=== PATIENT | female | born 1940 | race Caucasian/White ===

== ENCOUNTER → 2018-01-26 | Outpatient (CLI) | payer MEDICARE | LOC: WOUNDCARE 09:48 | PROVIDERS: ATTEND Surgery | DX: L89.153 Pressure ulcer of sacral region, stage 3 (principal); R54 Age-related physical debility; S72.002D Fracture of unspecified part of neck of left femur, subsequent encounter for closed fracture with routine healing | CPT/HCPCS: 99203 ==

== ENCOUNTER → 2018-01-31 | Outpatient (CLI) | payer MEDICARE | LOC: WOUNDCARE 12:56 | PROVIDERS: ATTEND Surgery | DX: L89.154 Pressure ulcer of sacral region, stage 4 (principal); R54 Age-related physical debility; S72.002D Fracture of unspecified part of neck of left femur, subsequent encounter for closed fracture with routine healing | CPT/HCPCS: 11042 ==

== ENCOUNTER → 2018-02-07 | Outpatient (CLI) | payer MEDICARE | LOC: WOUNDCARE 12:59 | PROVIDERS: ATTEND Surgery | DX: L89.154 Pressure ulcer of sacral region, stage 4 (principal); R54 Age-related physical debility; S72.002D Fracture of unspecified part of neck of left femur, subsequent encounter for closed fracture with routine healing | CPT/HCPCS: 11042 ==

== ENCOUNTER → 2018-02-14 | Outpatient (CLI) | payer MEDICARE | LOC: WOUNDCARE 13:06 | PROVIDERS: ATTEND Surgery | DX: L89.154 Pressure ulcer of sacral region, stage 4 (principal); R54 Age-related physical debility; S72.002D Fracture of unspecified part of neck of left femur, subsequent encounter for closed fracture with routine healing | CPT/HCPCS: 11042 ==

== ENCOUNTER → 2018-02-21 | Outpatient (CLI) | payer MEDICARE | LOC: WOUNDCARE 13:16 | PROVIDERS: ATTEND Nurse Practitioner | DX: L89.154 Pressure ulcer of sacral region, stage 4 (principal); R54 Age-related physical debility; S72.002A Fracture of unspecified part of neck of left femur, initial encounter for closed fracture | CPT/HCPCS: 11042; 87070; 87075; 87077; 87186; 87205; 97605 ==

== ENCOUNTER → 2018-02-28 | Outpatient (CLI) | payer MEDICARE | LOC: WOUNDCARE 13:17 | PROVIDERS: ATTEND Nurse Practitioner | DX: L89.154 Pressure ulcer of sacral region, stage 4 (principal); R54 Age-related physical debility; S72.002D Fracture of unspecified part of neck of left femur, subsequent encounter for closed fracture with routine healing | CPT/HCPCS: 11042 ==

== ENCOUNTER → 2018-03-07 | Outpatient (CLI) | payer MEDICARE | LOC: WOUNDCARE 13:19 | PROVIDERS: ATTEND Nurse Practitioner | DX: L89.154 Pressure ulcer of sacral region, stage 4 (principal); R54 Age-related physical debility; S72.002D Fracture of unspecified part of neck of left femur, subsequent encounter for closed fracture with routine healing | CPT/HCPCS: 11042; 97605 ==

== ENCOUNTER → 2018-03-14 | Outpatient (CLI) | payer MEDICARE | LOC: WOUNDCARE 13:08 | PROVIDERS: ATTEND Nurse Practitioner | DX: L89.154 Pressure ulcer of sacral region, stage 4 (principal); R54 Age-related physical debility; S72.002A Fracture of unspecified part of neck of left femur, initial encounter for closed fracture | CPT/HCPCS: 97605 ==

== ENCOUNTER → 2018-03-21 | Outpatient (CLI) | payer MEDICARE | LOC: WOUNDCARE 13:18 | PROVIDERS: ATTEND Nurse Practitioner | DX: L89.154 Pressure ulcer of sacral region, stage 4 (principal); R54 Age-related physical debility; S72.002D Fracture of unspecified part of neck of left femur, subsequent encounter for closed fracture with routine healing | CPT/HCPCS: 99212 ==

== ENCOUNTER → 2018-03-28 | Outpatient (CLI) | payer MEDICARE | LOC: WOUNDCARE 13:19 | PROVIDERS: ATTEND Nurse Practitioner | DX: L89.154 Pressure ulcer of sacral region, stage 4 (principal); R51 Headache; S72.002D Fracture of unspecified part of neck of left femur, subsequent encounter for closed fracture with routine healing | CPT/HCPCS: 99213 ==

== ENCOUNTER → 2018-04-18 | Outpatient (CLI) | payer MEDICARE | LOC: WOUNDCARE 13:07 | PROVIDERS: ATTEND Surgery | DX: L89.154 Pressure ulcer of sacral region, stage 4 (principal); R54 Age-related physical debility; S72.002D Fracture of unspecified part of neck of left femur, subsequent encounter for closed fracture with routine healing | CPT/HCPCS: 11042; 87070; 87075; 87205 ==

== ENCOUNTER → 2018-04-25 | Outpatient (CLI) | payer MEDICARE | LOC: WOUNDCARE 13:16 | PROVIDERS: ATTEND Surgery | DX: L89.154 Pressure ulcer of sacral region, stage 4 (principal); R54 Age-related physical debility; S72.002D Fracture of unspecified part of neck of left femur, subsequent encounter for closed fracture with routine healing | CPT/HCPCS: 11042; 87070; 87075; 87077; 87205 ==

== ENCOUNTER → 2018-05-02 | Outpatient (CLI) | payer MEDICARE ==
[2018-05-02 15:00] LABS: BASOPHILS % (AUTO) 1 % (0-10); EOSINOPHILS # (AUTO) 0.1 10^3/uL (0.0-0.3); EOSINOPHILS % (AUTO) 2 % (0-10); HEMATOCRIT 39 % (35-52); HEMOGLOBIN 12.4 G/DL (11.5-16.0); LYMPHOCYTES # (AUTO) 2.5 X 10^3 (1.0-4.0); LYMPHOCYTES % (AUTO) 43 % (12-44); MEAN CORPUSCULAR HEMOGLOBIN 27 PG (25-34); MEAN CORPUSCULAR HGB CONC 32 G/DL (32-36); MEAN CORPUSCULAR VOLUME 86 FL (80-99); MEAN PLATELET VOLUME 12.3 FL (7.4-10.4); MONOCYTES # (AUTO) 0.5 X 10^3 (0.0-1.0); MONOCYTES % (AUTO) 9 % (0-12); NEUTROPHILS # (AUTO) 2.6 X 10^3 (1.8-7.8); NEUTROPHILS % (AUTO) 46 % (42-75); PLATELET COUNT 166 10^3/uL (130-400); RED BLOOD COUNT 4.57 10^6/uL (4.35-5.85); RED CELL DISTRIBUTION WIDTH 15.3 % (10.0-14.5); WHITE BLOOD COUNT 5.7 10^3/uL (4.3-11.0)
[2018-05-02 15:17] LABS: ALANINE AMINOTRANSFERASE 19 U/L (0-55); ALBUMIN 3.9 GM/DL (3.2-4.5); ALKALINE PHOSPHATASE 81 U/L (40-136); BILIRUBIN,TOTAL 0.5 MG/DL (0.1-1.0); BUN/CREATININE RATIO 24; CALCIUM 9.8 MG/DL (8.5-10.1); CARBON DIOXIDE 26 MMOL/L (21-32); CHLORIDE 102 MMOL/L (98-107); CREATININE SERUM 0.71 MG/DL (0.60-1.30); GFR ESTIMATED > 60; GLUCOSE 88 MG/DL (70-105); SODIUM 137 MMOL/L (135-145); TOTAL PROTEIN 7.4 GM/DL (6.4-8.2)
== END ==
LOC: LAB 14:37
PROVIDERS: ATTEND Surgery
DX: L89.154 Pressure ulcer of sacral region, stage 4 (principal)
CPT/HCPCS: 36415; 80053; 84134; 85025

== ENCOUNTER → 2018-05-02 | Outpatient (CLI) | payer MEDICARE | LOC: WOUNDCARE 13:18 | PROVIDERS: ATTEND Surgery | DX: L89.154 Pressure ulcer of sacral region, stage 4 (principal); R54 Age-related physical debility; S72.002D Fracture of unspecified part of neck of left femur, subsequent encounter for closed fracture with routine healing | CPT/HCPCS: 11042 ==

== ENCOUNTER 2018-05-06 09:47 | Inpatient (IN) | payer MEDICARE ==
[2018-05-06] VITALS (16 sets, daily range): BP systolic 65–139; BP diastolic 38–65
[~2018-05-06] VITALS: Ht 152.4 cm; Wt 56.5 kg
--- OUTSIDE RECORDS SUMMARY | 2018-05-06 09:53 | XMS REPORT ---
Author Author CHRIS ZAPIEN Organization [facility] Address [address] [place] [address] Care Team Providers Care Second Rigger Name Role Phone CHRIS ZAPIEN Unavailable PROBLEMS Type Condition ICD9-CM Code [id number] Code Onset Dates Condition Status SNOMED Code Problem Dementia without behavioral disturbance, unspecified dementia type F03.90 Active [id number] ALLERGIES No Information ENCOUNTERS Encounter Location Date Diagnosis Via [facility] [employer] [address] [place], [place] [id number] Dec, History of fracture of left hip Z87.81 ; Pressure injury of right upper back, stage 1 L89.111 ; Pressure injury of sacral region, stage 1 L89.151 and Dementia without behavioral disturbance, unspecified dementia type F03.90 Via [employer] [address] [place], [place] [id number] Dec, History of fracture of left hip Z87.81 and Dementia without behavioral disturbance, unspecified dementia type F03.90 [facility] [address] [facility] [id number] [place] [address] Dec, IMMUNIZATIONS No Known Immunizations SOCIAL HISTORY Never Assessed REASON FOR VISIT Admission to V PLAN OF CARE VITAL SIGNS MEDICATIONS Unknown Medications RESULTS No Results PROCEDURES No Known procedures INSTRUCTIONS MEDICATIONS ADMINISTERED No Known Medications
--- OUTSIDE RECORDS SUMMARY | 2018-05-06 09:53 | XMS REPORT ---
Author Author CHRIS ZAPIEN Organization [facility] [place] Address [address] [place] [address] Care Team Providers Care Quality Control Name Role Phone CHRIS ZAPIEN Unavailable PROBLEMS Type Condition ICD9-CM Code [id number] Code Onset Dates Condition Status SNOMED Code Problem Dementia without behavioral disturbance, unspecified dementia type F03.90 Active [id number] ALLERGIES No Information ENCOUNTERS Encounter Location Date Diagnosis Via [facility] [employer] [address] [place], [place] [id number] Dec, History of fracture of left hip Z87.81 ; Pressure injury of right upper back, stage 1 L89.111 ; Pressure injury of sacral region, stage 1 L89.151 and Dementia without behavioral disturbance, unspecified dementia type F03.90 Via [employer] [address] [place], [place] [id number] Dec, History of fracture of left hip Z87.81 and Dementia without behavioral disturbance, unspecified dementia type F03.90 [facility] [place] [address] [facility] [id number] [place] [address] Dec, IMMUNIZATIONS No Known Immunizations SOCIAL HISTORY Never Assessed REASON FOR VISIT New Admission PLAN OF CARE Activity Details Follow Up prn Reason: VITAL SIGNS MEDICATIONS Unknown Medications RESULTS No Results PROCEDURES No Known procedures INSTRUCTIONS MEDICATIONS ADMINISTERED No Known Medications
--- OUTSIDE RECORDS SUMMARY | 2018-05-06 09:53 | XMS REPORT ---
Author Author CHRIS ZAPIEN Organization [facility] Address [address] [place] [address] Care Team Providers Care Special Services Supervisor Name Role Phone CHRIS ZAPIEN Unavailable PROBLEMS Type Condition ICD9-CM Code XLF67-RY Code Onset Dates Condition Status SNOMED Code Problem Dementia without behavioral disturbance, unspecified dementia type F03.90 Active [id number] ALLERGIES No Information ENCOUNTERS Encounter Location Date Diagnosis Via [facility] [employer] [address] [place], [place] [id number] Dec, History of fracture of left hip Z87.81 ; Pressure injury of right upper back, stage 1 L89.111 ; Pressure injury of sacral region, stage 1 L89.151 and Dementia without behavioral disturbance, unspecified dementia type F03.90 Via [employer] [address] [place], [place] [id number] Dec, History of fracture of left hip Z87.81 and Dementia without behavioral disturbance, unspecified dementia type F03.90 [facility] [address] [facility] [id number] [place] [address] Dec, IMMUNIZATIONS No Known Immunizations SOCIAL HISTORY Never Assessed REASON FOR VISIT [facility] Visit PLAN OF CARE Activity Details Follow Up prn Reason: VITAL SIGNS MEDICATIONS Unknown Medications RESULTS No Results PROCEDURES No Known procedures INSTRUCTIONS MEDICATIONS ADMINISTERED No Known Medications
[2018-05-06 10:16] LABS: BASOPHILS % (AUTO) 0 % (0-10); EOSINOPHILS % (AUTO) 0 % (0-10); HEMATOCRIT 48 % (35-52); HEMOGLOBIN 14.9 G/DL (11.5-16.0); LYMPHOCYTES # (AUTO) 1.4 X 10^3 (1.0-4.0); LYMPHOCYTES % (AUTO) 8 % (12-44); MEAN CORPUSCULAR HEMOGLOBIN 27 PG (25-34); MEAN CORPUSCULAR HGB CONC 31 G/DL (32-36); MEAN CORPUSCULAR VOLUME 88 FL (80-99); MEAN PLATELET VOLUME 12.9 FL (7.4-10.4); MONOCYTES # (AUTO) 1.3 X 10^3 (0.0-1.0); MONOCYTES % (AUTO) 8 % (0-12); NEUTROPHILS # (AUTO) 13.8 X 10^3 (1.8-7.8); NEUTROPHILS % (AUTO) 84 % (42-75); PLATELET COUNT 244 10^3/uL (130-400); RED CELL DISTRIBUTION WIDTH 15.8 % (10.0-14.5); WHITE BLOOD COUNT 16.5 10^3/uL (4.3-11.0)
[2018-05-06 10:38] LABS: ALANINE AMINOTRANSFERASE 15 U/L (0-55); ALBUMIN 4.6 GM/DL (3.2-4.5); ALKALINE PHOSPHATASE 90 U/L (40-136); BILIRUBIN,TOTAL 1.2 MG/DL (0.1-1.0); BUN/CREATININE RATIO 30; CALCIUM 10.4 MG/DL (8.5-10.1); CARBON DIOXIDE 45 MMOL/L (21-32); CHLORIDE 79 MMOL/L (98-107); CREATININE SERUM 1.65 MG/DL (0.60-1.30); GFR ESTIMATED 30; GLUCOSE 181 MG/DL (70-105); SODIUM 145 MMOL/L (135-145); TOTAL PROTEIN 8.7 GM/DL (6.4-8.2)
[2018-05-06 10:49] LABS: POTASSIUM 2.5 MMOL/L (3.6-5.0)
[2018-05-06] MEDS: NS IV 1000 ML 1,000 ML IV SCH ×5 (10:50→22:34)
--- NOTE | 2018-05-06 10:57 | ED Abdominal Pain ---
General Chief Complaint: Abdominal/GI Problems Stated Complaint: VOMITING Nursing Triage Note: Pt to rm 10 in wheelchair. Pt's daughter reports pt c/o vomiting and abdominal pain that began Wednesday. Pt was seen at Dr. Oswald office yesterday and was given two L IV NS in office. Daughter also reports pt has wound to tailbone that pt is seeing Dr. Staley for and reports pt has bacterial infection. Daughter reports pt took one dose of linezolid 600mg on Wednesday night and has not taken any since. Pt c/o back pain and dizziness. Daughter also reports pt has gallstones. Sepsis Screen: No Definite Risk Source of Information: Patient History of Present Illness Date Seen by Provider: May 06, 2018 Time Seen by Provider: 10:52 Initial Comments the patient is a 77-year-old white female who is chronically ill. She has been working with Dr. Staley in the wound care department since the fall. Recently he placed her on linezolid for the treatment of her sacral decubitus. Presumably this was to cover MRSA. She took one dose on Wednesday and then began to vomit. She had a bowel movement on Wednesday or Wednesday and none since. She is really not taken any food since Wednesday and has struggled with fluid intake. The daughter has tried Gatorade and Pedialyte with little success. She got 2 L of fluid yesterday at an outpatient clinic. She arrived here with blood pressure in the low normal range and has dropped her blood pressure since that time. Timing/Duration: 4-5 Days Severity/Quality: Moderate Radiation: Back Allergies and Home Medications Allergies Coded Allergies: No Known Drug Allergies (Unverified , 05/06/18) Patient Home Medication List Home Medication List Reviewed: Yes Review of Systems Review of Systems Constitutional: see HPI Respiratory: No Symptoms Reported Cardiovascular: No Symptoms Reported Gastrointestinal: See HPI, Other (very large umbilical hernia which is approaching the size of a volleyball even when lying flat on her back) Genitourinary: No Symptoms Reported Musculoskeletal: no symptoms reported Skin: other (presacral ulcer being treated in the wound clinic) Psychiatric/Neurological: Depressed Endocrine: No Symptoms Reported Hematologic/Lymphatic: No Symptoms Reported Past Vlghgty-Qeooto-Htggjo Hx Past Med/Social Hx: Reviewed Nursing Past Med/Soc Hx Patient Social History Recent Foreign Travel: No Contact w/Someone Who Travel: No Recent Infectious Disease Expo: No Physical Abuse: No Sexual Abuse: No Physical Exam Vital Signs Vital Signs - First Documented 05/06/18 09:49 Temp 97.6 Pulse 95 Resp 19 B/P (MAP) 102/73 (83) Pulse Ox 89 O2 Delivery Room Air Capillary Refill : Less Than 3 Seconds Height/Weight/BMI Height: 5'0" Weight: 129lbs. oz. 58.786819mp; BMI Method:Stated General Appearance: moderate distress, severe distress, other HEENT: normal ENT inspection Respiratory: chest non-tender, lungs clear, normal breath sounds, no respiratory distress, no accessory muscle use Cardiovascular: normal peripheral pulses, regular rate, rhythm, no edema, no gallop, no JVD, no murmur Gastrointestinal: other (large umbilical hernia which is very evident even lying flat on her back. 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 nml as tested, no motor/sensory deficits, alert, normal mood/affect, oriented x 3 Skin: normal color, warm/dry Lymphatic: no adenopathy Focused Exam Lactate Level 05/06/18 10:50: Lactic Acid Level Laboratory Tests Test 05/06/18 10:50 Progress/Results/Core Measures Results/Orders Lab Results Laboratory Tests Test 05/06/18 10:05 05/06/18 10:50 Range/Units White Blood Count 16.5 H 4.3-11.0 10^3/uL Red Blood Count 5.44 4.35-5.85 10^6/uL Hemoglobin 14.9 # 11.5-16.0 G/DL Hematocrit 48 35-52 % Mean Corpuscular Volume 88 80-99 FL Mean Corpuscular Hemoglobin 27 25-34 PG Mean Corpuscular Hemoglobin Concent 31 L 32-36 G/DL Red Cell Distribution Width 15.8 H 10.0-14.5 % Platelet Count 244 130-400 10^3/uL Mean Platelet Volume 12.9 H 7.4-10.4 FL Neutrophils (%) (Auto) 84 H 42-75 % Lymphocytes (%) (Auto) 8 L 12-44 % Monocytes (%) (Auto) 8 0-12 % Eosinophils (%) (Auto) 0 0-10 % Basophils (%) (Auto) 0 0-10 % Neutrophils # (Auto) 13.8 H 1.8-7.8 X 10^3 Lymphocytes # (Auto) 1.4 1.0-4.0 X 10^3 Monocytes # (Auto) 1.3 H 0.0-1.0 X 10^3 Eosinophils # (Auto) 0.0 0.0-0.3 10^3/uL Basophils # (Auto) 0.0 0.0-0.1 10^3/uL Neutrophils % (Manual) 78 % Lymphocytes % (Manual) 12 % Monocytes % (Manual) 4 % Eosinophils % (Manual) 0 % Basophils % (Manual) 0 % Band Neutrophils 6 % Toxic Granulation 1+ Blood Morphology Comment NORMAL Sodium Level 145 135-145 MMOL/L Potassium Level 2.5 *L 3.6-5.0 MMOL/L Chloride Level 79 L 98-107 MMOL/L Carbon Dioxide Level 45 H 21-32 MMOL/L Anion Gap 21 H 5-14 MMOL/L Blood Urea Nitrogen 49 H 7-18 MG/DL Creatinine 1.65 H 0.60-1.30 MG/DL Estimat Glomerular Filtration Rate 30 BUN/Creatinine Ratio 30 Glucose Level 181 H 70-105 MG/DL Calcium Level 10.4 H 8.5-10.1 MG/DL Corrected Calcium 8.5-10.1 MG/DL Total Bilirubin 1.2 H 0.1-1.0 MG/DL Aspartate Amino Transf (AST/SGOT) 31 5-34 U/L Alanine Aminotransferase (ALT/SGPT) 15 0-55 U/L Alkaline Phosphatase 90 40-136 U/L Total Protein 8.7 H 6.4-8.2 GM/DL Albumin 4.6 H 3.2-4.5 GM/DL My Orders Orders - ALICIA PASTOR MD Cbc With Automated Diff (05/06/18 09:57) Comprehensive Metabolic Panel (05/06/18 09:57) Ua Culture If Indicated (05/06/18 09:57) Manual Differential (05/06/18 10:05) Blood Culture (05/06/18 10:32) Lactic Acid Analyzer (05/06/18 10:32) Ns Iv 1000 Ml (Sodium Chloride 0.9%) (05/06/18 10:45) Ondansetron Injection (Zofran Injectio (05/06/18 11:00) Potassium Cl 10meq/50ml Ivpb (Kcl 10 Meq (05/06/18 11:00) Ct Abdomen/Pelvis Wo (05/06/18 11:08) Medications Given in ED Current Medications Medications Dose Ordered Sig/Bassam Route Start Time Stop Time Status Last Admin Dose Admin Ondansetron HCl 8 mg ONCE ONCE IVP 05/06/18 11:00 05/06/18 11:01 DC 05/06/18 11:10 8 MG Vital Signs/I&O 05/06/18 09:49 Temp 97.6 Pulse 95 Resp 19 B/P (MAP) 102/73 (83) Pulse Ox 89 O2 Delivery Room Air Blood Pressure Mean: 83 Departure Communication (Admissions) Dr. Romo called me from radiology. I then went down to review the CT scan with him. This shows that the bulk of the stomach and all of the left colon or in the hernia sac. The stomach is extremely distended and full of fluid. This clearly explains the overflow vomiting of the bilious liquid that the patient has exhibited. She had already qualified for admission and this will be done. A surgical consult will be required. Impression Primary Impression: large umbilical hernia. Disposition: ADMITTED INPATIENT Condition: Stable/Unchanged Admissions Decision to Admit Reason: Admit from ER (General) Decision to Admit/Date: May 06, 2018 Time/Decision to Admit Time: 12:08 Departure-Patient Inst. Referrals: [facility] (PCP) Primary Care Physician FERNANDO OSWALD (Family) Primary Care Physician ALICIA PASTOR MD May 06, 2018 10:57
[2018-05-06 10:58] LABS: BAND NEUTROPHILS 6 %; LYMPHOCYTES % (MANUAL) 12 %; MONOCYTES % (MANUAL) 4 %; NEUTROPHILS % (MANUAL) 78 %
[2018-05-06 10:59] LABS: BASOPHILS % (MANUAL) 0 %; EOSINOPHILS % (MANUAL) 0 %; RBC MORPH NORMAL; TOXIC GRANULATION/VACUOLAZATIO 1+
[2018-05-06] MEDS ORDERED: ONDANSETRON 4 MG/2 ML (SDV) Z0FRAN IVP ONE (11:00)
[2018-05-06] MEDS: POTASSIUM CL 10MEQ/50ML IVPB 50 ML IV SCH ×3 (11:53→14:32)
--- NOTE | 2018-05-06 12:29 | Diagnostic Imaging Report ---
PROCEDURE: CT abdomen and pelvis without contrast. TECHNIQUE: Multiple contiguous axial images were obtained through the abdomen and pelvis without the use of intravenous contrast. INDICATION: Vomiting and abdominal pain. No prior studies are available for comparison. The lung bases are clear. The distal esophagus is distended and fluid-filled. There is marked fluid-filled distention to the stomach. A large portion of the stomach extends through an abdominal wall defect in the midline. The herniated portion of stomach is also fluid filled and distended. A large amount of bowel loops are also present in the hernia sac which appear to be primarily colonic bowel loops, likely in the left colon. There appears to be a gastric outlet obstruction. Level of the obstruction appears to be at the pylorus which appears to be significantly narrowed at the abdominal wall anteriorly at the point of reentry into the abdomen. Pylorus is herniated with the remainder of the distal stomach. The colon does not appear to be obstructed. No wall thickening or pneumatosis is seen. Intra-abdominal small bowel loops are normal caliber. There is diverticulosis of the distal colon. Uterus contains a large calcification consistent with fibroid. There is no ascites. Liver is unremarkable. Gallbladder contains small stones. The pancreas and spleen are unremarkable. Adrenal glands and kidneys are unremarkable. Aorta is calcified but nonaneurysmal. IMPRESSION: Midline ventral hernia containing the distal stomach and gastric outlet as well as multiple colonic bowel loops. The stomach and distal esophagus are significantly distended with fluid. Features are consistent with gastric outlet obstruction. No definite small or large bowel obstruction is seen. Patient would likely benefit from a nasogastric tube. Cholelithiasis. Uncomplicated diverticulosis. Results were discussed with Dr. Rebolledo of the emergency department prior to this dictation. Dictated by: Dictated on workstation # [id number]
[2018-05-06] MEDS ORDERED: NS IV 1000 ML 1,000 ML IV SCH (12:30)
--- NOTE | 2018-05-06 13:28 | NUR ---
Dr. Girard in with pt at this time.
--- NOTE | 2018-05-06 13:35 | NUR ---
Total of 3,475 cc of stomach contents suctioned at this time.
[2018-05-06] MEDS ORDERED: POTA10TA36 PO (13:46)
[2018-05-06] MEDS ORDERED: CAPT1TAB8 PO (13:46)
[2018-05-06] MEDS ORDERED: VERA120T84 PO (13:46)
[2018-05-06] MEDS ORDERED: LOVA10TA PO (13:46)
[2018-05-06] MEDS ORDERED: LINE600T33 PO (13:46)
[2018-05-06] MEDS ORDERED: ONDA4TAB11 PO (13:46)
[2018-05-06] MEDS ORDERED: SODI473S7 TOP (13:46)
--- NOTE | 2018-05-06 13:55 | NUR ---
PT ADMITTED TO ICU8 VIA STRETCHER W/ STAFF. PT ASSISTED INTO BED AND PLACED ON MONITORS. PT ORIENTED TO SURROUNDINGS. NO QUESTIONS/CONCERNS VOICED.
--- NOTE | 2018-05-06 14:03 | Consultation ---
History of Present Illness History of Present Illness Patient Consulted On(ethan/time) 05/06/18 13:57 Date Seen by Provider: May 06, 2018 Time Seen by Provider: 12:55 Reason for Visit: abdominal pain and vomiting History of Present Illness long-standing, large, primary ventral hernia containing stomach, small bowel and colon. Patient being managed at our wound care facility regarding a sacral decubitus ulcer, that she suffered following a fracture of her left femur about 8 months ago.evaluation in the emergency room including a CT scan shows chronic renal insufficiency with a dilated stomach, possibly due to acute gastric dilatation. In addition, her white cell count and lactic acid are elevated indicating early sepsis. Allergies and Home Medications Allergies Coded Allergies: No Known Drug Allergies (Unverified , 05/06/18) Home Medications Captopril/Hydrochlorothiazide 1 Each Tablet, 1 TAB PO DAILY, (Reported) Linezolid 600 Mg Tablet, 600 MG PO BID, (Reported) 10 DAY SUPPLY FILLED 05-02-18 Lovastatin 10 Mg Tablet, 10 MG PO HS, (Reported) Ondansetron 4 Mg Tab.rapdis, 4 MG PO TID PRN for NAUSEA/VOMITING-1ST LINE, ( Reported) Potassium Chloride 10 Meq Tab.er.prt, 10 MEQ PO BID, (Reported) Sodium Hypochlorite 473 Ml Solution, TOP UD, (Reported) Verapamil HCl 120 Mg Tablet.er, 120 MG PO DAILY, (Reported) Patient Home Medication List Home Medication List Reviewed: Yes Past Jekhrzy-Zftmfl-Egdzhs Hx Past Med/Social Hx: Reviewed Nursing Past Med/Soc Hx Patient Social History Recent Foreign Travel: No Contact w/Someone Who Travel: No Recent Infectious Disease Expo: No Physical Abuse: No Sexual Abuse: No Past Medical History Surgeries: Yes Orthopedic Gastrointestinal: Yes Abdominal Hernia, Chronic Constipation Musculoskeletal: Yes Chronic Back Pain Endocrine: Yes Diabetes, Insulin dep Review of Systems-General Constitutional: malaise, weakness EENTM: no symptoms reported Respiratory: no symptoms reported Cardiovascular: no symptoms reported Gastrointestinal: see HPI Genitourinary: no symptoms reported Musculoskeletal: see HPI Skin: see HPI Psychiatric/Neurological: Anxiety Physical Exam-General Problems Physical Exam Vital Signs Vital Signs - First Documented 05/06/18 09:49 Temp 97.6 Pulse 95 Resp 19 B/P (MAP) 102/73 (83) Pulse Ox 89 O2 Delivery Room Air Capillary Refill : Less Than 3 Seconds General Appearance: mild distress Neck: supple Respiratory: lungs clear Cardiovascular: regular rate, rhythm Gastrointestinal: soft, hernia Rectal: deferred Back: other Extremities: normal inspection Neurologic/Psychiatric: alert, oriented x 3 Skin: warm/dry Comments large and nontender, long-standing ventral hernia with loss of domain along the central aspect of her abdomen. Peristalsis easily seen through the skin. No evidence of incarceration. Sacral decubitus ulcer with evidence of recent debridement by the wound care physician. No abscess identified. Assessment/Plan Assessment/Plan Admission Diagnosis/Plan lady with acute gastric dilatation. Long-standing ventral hernia containing stomach small bowel and colon. Sacral decubitus ulcer. Leukocytosis and elevated lactic acid. Reasonable to administer IV antibiotics. Nasogastric tube has been placed to decompress stomach. Fluid replacement as needed. Monitor closely. Admission Status: Inpatient Order (span 2 midnights) Reason for Inpatient Admission: hospital course and management required to last longer than 2 days BRIEN RIOS MD May 06, 2018 14:03
[2018-05-06] MEDS: NOREPINEPHRINE 4 MG in NS (IVPB) 250 ML IV SCH (14:11)
[2018-05-06] MEDS ORDERED: CATHETER FLUSH 10 ML SYR IV PRN (14:15)
[2018-05-06] MEDS ORDERED: NS IV ONE (14:15)
[2018-05-06] MEDS ORDERED: OMG1KC PO (14:24)
[2018-05-06] MEDS ORDERED: GLUC100016 PO (14:24)
--- NOTE | 2018-05-06 14:25 | NUR ---
SPOKE WITH THE PATIENT AND FAMILY ABOUT MEDICATIONS. THEY HAD HER PRESCRIPTION BOTTLES WITH THEM AND I CALLED [facility] FOR A LIST OF RECENTLY FILLED MEDICATIONS. [facility] FILLED: 05-05-18 ZOFRAN ODT 4MG TID PRN 05-02-18 LINEZOLID 600MG BID X 10 DAYS (HAS NOT TAKEN SINCE WEDNESDAY DUE TO NAUSEA/VOMITING) 04-25-18 CAPTOPRIL HCTZ 50-25 DAILY 04-18-18 DAKIN'S SOLUTION UD (STATES SHE IS NO LONGER USING) 04-10-18 LOVASTATIN 10MG WITH SUPPER #90 (HAS NOT TAKEN ALL WEEK DUE TO NAUSEA) 04-10-18 POTASSIUM 10MEQ BID 04-10-18 VERAPAMIL ER 120MG TAB DAILY (TAKES 1 HOUR AFTER CAPTOPRIL) SHE TAKES FISH OIL DAILY AND GLUCOSAMINE DAILY NEEDED FOR JOINT PAIN OTC
[2018-05-06] MEDS: PANTOPRAZOLE 40 MG (PROTONIX) VIAL IV SCH (14:26)
[2018-05-06] MEDS: cefTRIAXone 1 GM/NS 50 ML IVPB IV SCH ×2 (14:26)
--- NOTE | 2018-05-06 14:33 | NUR ---
PER ER REPORT PT RECEIVED 2L IVF BOLUS WHILE IN ER. 30ML/KG BOLUS NON ADMINISTERED AT THIS TIME.
[2018-05-06] MEDS ORDERED: FLU QUADRIvalent (5+ YOA) 2018-2019 (AFLURIA) 0.5 ML IM ONE (15:00)
[2018-05-06 15:51] LABS: BILIRUBIN,URINE NEGATIVE (NEGATIVE); CLARITY,URINE VERY CLOUDY; COLOR,URINE YELLOW; GLUCOSE, URINE (UA) NEGATIVE (NEGATIVE); KETONES,URINE 1+ (NEGATIVE); LEUKOCYTE ESTERASE ,URINE 1+ (NEGATIVE); NITRITE,URINE NEGATIVE (NEGATIVE); PH,URINE 6 (5-9); PROTEIN,URINE 3+ (NEGATIVE); UROBILINOGEN,URINE NORMAL (NORMAL)
[2018-05-06 16:01] LABS: HYALINE CASTS, URINE >50 /LPF
--- NOTE | 2018-05-06 23:50 | NUR ---
2325 Patient BP 88/49, patient cuff adjusted with repeat BP at 2329 of 84/44. 2330 reading 89/38. This com writer spoke in depth with the patient at this time about possibility needing IV medication to help raise blood pressure and that patient would need central line placement by the surgeon. This com writer explained all about the medication and the possible side effects and benefits. Patient denies needing this medication, patient states "I don't want that." Also stating "fear of high blood pressure." This com writer offered to call patient daughter Katharina to explain the changes in patient blood pressure and patient did not want this com writer to call. Patient continues repeating that she does not want this medication multiple time during this conversation. This com writer explained the risks with low blood pressure and not having profusion to her vital organs including her brain. Patient verbalized understanding and continues to decline. Patient rolled on to her left side at this time and had a blood pressure reading of 126/60. Subsequent blood pressures have read 103/59 and 107/56. Will continue to monitor and follow blood pressure closely. Will call daughter with an update as she did express wanting to know about changes through the night in patient condition.
[2018-05-07] VITALS (24 sets, daily range): BP systolic 102–146; BP diastolic 46–74
[2018-05-07] MEDS: inSUlin ASPART (NovoLOG) 1 UNIT/0.01 ML (CHARGE PER UNIT) SC SCH ×4 (00:10→17:08)
--- NOTE | 2018-05-07 00:25 | NUR ---
Attempted to call daughter Radha at this time. No answer. Left voicemail for her to return my call for an update.
[2018-05-07] MEDS: NOREPINEPHRINE 4 MG in NS (IVPB) 250 ML IV SCH ×2 (03:50→16:05)
[2018-05-07 03:58] LABS: BASOPHILS % (AUTO) 0 % (0-10); EOSINOPHILS % (AUTO) 0 % (0-10); HEMATOCRIT 33 % (35-52); LYMPHOCYTES # (AUTO) 1.7 X 10^3 (1.0-4.0); LYMPHOCYTES % (AUTO) 17 % (12-44); MEAN CORPUSCULAR HEMOGLOBIN 28 PG (25-34); MEAN CORPUSCULAR HGB CONC 31 G/DL (32-36); MEAN CORPUSCULAR VOLUME 91 FL (80-99); MEAN PLATELET VOLUME 12.7 FL (7.4-10.4); MONOCYTES # (AUTO) 1.3 X 10^3 (0.0-1.0); MONOCYTES % (AUTO) 13 % (0-12); NEUTROPHILS % (AUTO) 70 % (42-75); PLATELET COUNT 134 10^3/uL (130-400); RED CELL DISTRIBUTION WIDTH 15.8 % (10.0-14.5)
[2018-05-07 04:18] LABS: ALBUMIN 2.9 GM/DL (3.2-4.5); CALCIUM 7.9 MG/DL (8.5-10.1); CREATININE SERUM 0.96 MG/DL (0.60-1.30); MAGNESIUM 2.1 MG/DL (1.8-2.4); PHOSPHORUS 2.6 MG/DL (2.3-4.7); TOTAL PROTEIN 5.3 GM/DL (6.4-8.2)
[2018-05-07 04:22] LABS: POTASSIUM 2.3 MMOL/L (3.6-5.0)
[2018-05-07] MEDS: KCL 20 MEQ TAB (K-DUR) PO SCH (04:27)
[2018-05-07] MEDS: MAGNESIUM 1 GM/100 ML IVPB 100 ML IV SCH (04:27)
[2018-05-07] MEDS: POTASSIUM CL 10MEQ/50ML IVPB 50 ML IV SCH ×11 (04:28→17:12)
[2018-05-07] MEDS: NS IV 1000 ML 1,000 ML IV SCH ×2 (04:38→10:52)
[2018-05-07] MEDS: PANTOPRAZOLE 40 MG (PROTONIX) VIAL IV SCH (08:35)
[2018-05-07] MEDS: cefTRIAXone 1 GM/NS 50 ML IVPB IV SCH ×2 (08:35)
--- NOTE | 2018-05-07 08:57 | Diagnostic Imaging Report ---
INDICATION: Shortness of breath. COMPARISON: None. FINDINGS: Single view of the chest demonstrates cardiac enlargement with slight central vascular congestion. Trace effusion is seen in the left base. There is no pneumothorax. There is an NG tube within the stomach. The side-port is just below the GE junction. IMPRESSION: 1. Cardiac enlargement with slight central vascular congestion. 2. Small effusion left base. Dictated by: Dictated on workstation # [id number]
--- NOTE | 2018-05-07 10:50 | History & Physicial (CHS) ---
HPI History of Present Illness: 77 yo F with known large ventral hernia that had 1 day of vomiting. Initially thought to be related to starting new antibiotic but patient continued to vomit after stopping antibiotic. She was unable to keep any fluid or food down. Decreased UOP and PO intake. Denies any fever or chills. Source: patient, RN/MD, old records Exam Limitations: no limitations Date seen by provider: May 07, 2018 Time Seen by Provider: 10:15 Attending Physician Rex Tracey MD [facility] [place] Consult Date of Admission May 06, 2018 at 13:11 Home Medications Home Medications Reviewed patient Home Medication Reconciliation performed by pharmacy medication reconciliations dental lab technician and/or nursing. Patients Allergies have been reviewed. Allergies Coded Allergies: chocolate flavor (Verified Allergy, Mild, NAUSEA, 05/06/18) [id number] Hx Patient Social History Alcohol Use: Denies Use Recreational Drug Use: No 2nd Hand Smoke Exposure: No Recent Foreign Travel: No Contact w/other who traveled: No Recent Hopitalizations: No Recent Infectious Disease Expo: No Physical Abuse Screen: No Sexual Abuse: No Past Medical History Ventral Hernia HTN Sacral Decubitus Ulcer Chronic Family Medical History Family History: Hypertension 19 MOTHER Review of Systems ([facility]C) Constitutional: No chills, No fever; weakness EENTM: no symptoms reported Respiratory: no symptoms reported; No cough, No dyspnea on exertion, No short of breath Cardiovascular: no symptoms reported; No chest pain, No edema, No palpitations Gastrointestinal: abdominal pain, loss of appetite, nausea, vomiting Genitourinary: decreased output; No dysuria, No frequency, No hematuria : No Musculoskeletal: no symptoms reported Skin: no symptoms reported Psychiatric/Neurological: No Symptoms Reported Reviewed Test Results Reviewed Test Results Lab Laboratory Tests Test 05/06/18 12:19 05/06/18 15:15 05/06/18 15:40 05/06/18 23:36 Range/Units Lactic Acid Level 3.23 *H 1.48 0.50-2.00 MMOL/L Urine Color YELLOW Urine Clarity VERY CLOUDY H Urine pH 6 5-9 Urine Specific [place] 1.015 L 1.016-1.022 Urine Protein 3+ H NEGATIVE Urine Glucose (UA) NEGATIVE NEGATIVE Urine Ketones 1+ H NEGATIVE Urine Nitrite NEGATIVE NEGATIVE Urine Bilirubin NEGATIVE NEGATIVE Urine Urobilinogen NORMAL NORMAL MG/DL Urine Leukocyte Esterase 1+ H NEGATIVE Urine RBC (Auto) 2+ H NEGATIVE Urine RBC 5-10 H /HPF Urine WBC 2-5 /HPF Urine Crystals NONE /LPF Urine Bacteria NONE /HPF Urine Casts PRESENT /LPF Urine Hyaline Casts >50 H /LPF Urine Granular Casts 2-5 H /LPF Urine Mucus NEGATIVE /LPF Urine Culture Indicated NO Glucometer 97 70-110 MG/DL Test 05/07/18 03:10 Range/Units White Blood Count 10.0 4.3-11.0 10^3/uL Red Blood Count 3.59 L 4.35-5.85 10^6/uL Hemoglobin 10.0 #L 11.5-16.0 G/DL Hematocrit 33 L 35-52 % Mean Corpuscular Volume 91 80-99 FL Mean Corpuscular Hemoglobin 28 25-34 PG Mean Corpuscular Hemoglobin Concent 31 L 32-36 G/DL Red Cell Distribution Width 15.8 H 10.0-14.5 % Platelet Count 134 130-400 10^3/uL Mean Platelet Volume 12.7 H 7.4-10.4 FL Neutrophils (%) (Auto) 70 42-75 % Lymphocytes (%) (Auto) 17 12-44 % Monocytes (%) (Auto) 13 H 0-12 % Eosinophils (%) (Auto) 0 0-10 % Basophils (%) (Auto) 0 0-10 % Neutrophils # (Auto) 7.0 1.8-7.8 X 10^3 Lymphocytes # (Auto) 1.7 1.0-4.0 X 10^3 Monocytes # (Auto) 1.3 H 0.0-1.0 X 10^3 Eosinophils # (Auto) 0.0 0.0-0.3 10^3/uL Basophils # (Auto) 0.0 0.0-0.1 10^3/uL Sodium Level 148 H 135-145 MMOL/L Potassium Level 2.3 *L 3.6-5.0 MMOL/L Chloride Level 99 98-107 MMOL/L Carbon Dioxide Level 37 H 21-32 MMOL/L Anion Gap 12 5-14 MMOL/L Blood Urea Nitrogen 43 H 7-18 MG/DL Creatinine 0.96 0.60-1.30 MG/DL Estimat Glomerular Filtration Rate 57 BUN/Creatinine Ratio 45 Glucose Level 94 70-105 MG/DL Calcium Level 7.9 L 8.5-10.1 MG/DL Corrected Calcium 8.8 8.5-10.1 MG/DL Phosphorus Level 2.6 2.3-4.7 MG/DL Magnesium Level 2.1 1.8-2.4 MG/DL Total Bilirubin 1.0 0.1-1.0 MG/DL Aspartate Amino Transf (AST/SGOT) 21 5-34 U/L Alanine Aminotransferase (ALT/SGPT) 13 0-55 U/L Alkaline Phosphatase 53 40-136 U/L Total Protein 5.3 L 6.4-8.2 GM/DL Albumin 2.9 L 3.2-4.5 GM/DL Radiology Date of Exam: 05/06/18 CT ABDOMEN/PELVIS WO PROCEDURE: CT abdomen and pelvis without contrast. TECHNIQUE: Multiple contiguous axial images were obtained through the abdomen and pelvis without the use of intravenous contrast. INDICATION: Vomiting and abdominal pain. No prior studies are available for comparison. The lung bases are clear. The distal esophagus is distended and fluid-filled. There is marked fluid-filled distention to the stomach. A large portion of the stomach extends through an abdominal wall defect in the midline. The herniated portion of stomach is also fluid filled and distended. A large amount of bowel loops are also present in the hernia sac which appear to be primarily colonic bowel loops, likely in the left colon. There appears to be a gastric outlet obstruction. Level of the obstruction appears to be at the pylorus which appears to be significantly narrowed at the abdominal wall anteriorly at the point of reentry into the abdomen. Pylorus is herniated with the remainder of the distal stomach. The colon does not appear to be obstructed. No wall thickening or pneumatosis is seen. Intra-abdominal small bowel loops are normal caliber. There is diverticulosis of the distal colon. Uterus contains a large calcification consistent with fibroid. There is no ascites. Liver is unremarkable. Gallbladder contains small stones. The pancreas and spleen are unremarkable. Adrenal glands and kidneys are unremarkable. Aorta is calcified but nonaneurysmal. IMPRESSION: Midline ventral hernia containing the distal stomach and gastric outlet as well as multiple colonic bowel loops. The stomach and distal esophagus are significantly distended with fluid. Features are consistent with gastric outlet obstruction. No definite small or large bowel obstruction is seen. Patient would likely benefit from a nasogastric tube. Cholelithiasis. Uncomplicated diverticulosis. Physical Exam-(CHC) Physical Exam Vital Signs VS - Last 72 Hours, by Label 05/06/18 05/06/18 05/06/18 05/06/18 09:49 13:35 13:55 14:03 Temp 97.6 97.6 Pulse 95 99 94 Resp 19 17 B/P (MAP) 102/73 (83) 97/78 (84) Pulse Ox 89 94 O2 Delivery Room Air Room Air Room Air 05/06/18 05/06/18 05/06/18 05/06/18 14:15 14:15 14:30 14:45 Temp 98.1 Pulse 92 93 95 97 Resp 12 21 10 24 B/P (MAP) 139/44 (75) 139/44 (75) 83/41 (55) 95/56 (69) Pulse Ox 96 93 96 95 O2 Delivery Room Air Room Air Room Air Room Air 05/06/18 05/06/18 05/06/18 05/06/18 15:00 15:15 15:22 15:30 Temp 98.8 Pulse 99 97 98 Resp 17 55 32 B/P (MAP) 90/54 (66) 92/48 (63) 105/51 (69) Pulse Ox 97 96 97 O2 Delivery Room Air Room Air Room Air 05/06/18 05/06/18 05/06/18 05/06/18 15:45 16:00 16:03 17:00 Pulse 95 92 96 Resp 10 24 27 B/P (MAP) 65/46 (52) 92/55 (67) 94/56 (69) Pulse Ox 96 93 94 O2 Delivery Room Air Room Air Room Air Room Air 05/06/18 05/06/18 05/06/18 05/06/18 18:00 19:00 19:00 19:45 Temp 98.8 Pulse 93 89 93 Resp 27 20 B/P (MAP) 83/43 (56) 96/65 (75) Pulse Ox 93 93 93 O2 Delivery Room Air Room Air Room Air 05/06/18 05/06/18 05/06/18 05/06/18 20:00 21:00 22:00 23:00 Pulse 79 79 70 76 Resp 22 22 16 15 B/P (MAP) 92/53 (66) 100/53 (69) 116/59 (78) 88/45 (59) Pulse Ox 93 93 94 92 O2 Delivery Room Air Room Air Room Air Room Air 05/06/18 05/06/18 05/06/18 05/06/18 23:30 23:35 23:37 23:43 Temp 98.2 Pulse 77 Resp 18 B/P (MAP) 89/38 (55) Pulse Ox 92 92 O2 Delivery Room Air Room Air Nasal Cannula Nasal Cannula O2 Flow Rate 2.00 2.00 05/07/18 05/07/18 05/07/18 05/07/18 00:00 01:00 01:00 02:00 Pulse 73 70 69 69 Resp 20 22 26 B/P (MAP) 103/59 (74) 106/53 (70) 102/61 (75) Pulse Ox 96 99 98 O2 Delivery Nasal Cannula Nasal Cannula Nasal Cannula O2 Flow Rate 2.00 2.00 2.00 05/07/18 05/07/18 05/07/18 05/07/18 03:00 04:00 04:00 05:00 Temp 97.7 Pulse 56 70 53 Resp 21 15 19 B/P (MAP) 102/48 (66) 115/69 (84) 119/52 (74) Pulse Ox 100 98 98 100 O2 Delivery Nasal Cannula Nasal Cannula Nasal Cannula Nasal Cannula O2 Flow Rate 2.00 2.00 2.00 2.00 05/07/18 05/07/18 05/07/18 05/07/18 06:00 07:00 07:01 07:38 Temp 98.2 Pulse 65 57 56 Resp 12 24 B/P (MAP) 122/56 (78) 116/52 (73) Pulse Ox 100 99 O2 Delivery Nasal Cannula Nasal Cannula O2 Flow Rate 2.00 2.00 05/07/18 08:24 O2 Delivery Nasal Cannula O2 Flow Rate 2.00 Capillary Refill : Less Than 3 Seconds General Appearance: WD/WN, no apparent distress, thin HEENT: PERRL/EOMI Neck: non-tender, full range of motion, supple, normal inspection Respiratory: chest non-tender, lungs clear, normal breath sounds, no respiratory distress, no accessory muscle use Cardiovascular: normal peripheral pulses, regular rate, rhythm, no edema, no murmur Gastrointestinal: non tender, soft, mass (Large Ventral Hernia) Back: no CVA tenderness, no vertebral tenderness Extremities: normal range of motion, non-tender, normal inspection, no pedal edema, no calf tenderness, normal capillary refill Neurologic/Psychiatric: tie carrier II-XII nml as tested, no motor/sensory deficits, alert, normal mood/affect, oriented x 3 Skin: normal color, warm/dry Lymphatic: no adenopathy Assessment/Plan Assessment/Plan Admission Status: Inpatient Order (span 2 midnights) Reason for Inpatient Admission: Requiring ICU care with hypotension, IV antibiotics and surgical consult (1) Sepsis Status: Acute Assessment & Plan: - VS have stabilized this AM, Continue IV antibiotics Qualifiers: Qualified Codes: A41.9 - Sepsis, unspecified organism (2) Ventral hernia with bowel obstruction Status: Acute Assessment & Plan: - Large Ventral Hernia containing Stomach, segments of small bowel and segments of large bowel, Dr Girard consulted and managing, continue NG for decompression and NPO (3) Acute kidney failure Status: Resolved Assessment & Plan: - Likely Prerenal 2/2 dehydration as it has resolved with IVFs (4) Leukocytosis Status: Resolved (5) Hypokalemia Status: Acute Assessment & Plan: - Continue with replacement (6) Debility Status: Acute Assessment & Plan: -PT/OT (7) DVT prophylaxis Status: Acute Assessment & Plan: - Lovenox Clinical Quality Measures DVT/VTE Risk/Contraindication: Risk Factor Score Per Nursin RFS Level Per Nursing on Admit: 3=High REX TRACEY MD May 07, 2018 10:50
[2018-05-07] MEDS: ENOXAPARIN 40 MG/0.4 ML (LOVENOX) SYR SQ SCH (11:36)
[2018-05-07 12:58] LABS: BUN/CREATININE RATIO 40; CALCIUM 8.1 MG/DL (8.5-10.1); CARBON DIOXIDE 34 MMOL/L (21-32); CHLORIDE 104 MMOL/L (98-107); CREATININE SERUM 0.77 MG/DL (0.60-1.30); GFR ESTIMATED > 60; GLUCOSE 83 MG/DL (70-105); POTASSIUM 3.1 MMOL/L (3.6-5.0); SODIUM 148 MMOL/L (135-145)
--- NOTE | 2018-05-07 13:23 | Progress Note (SOAP) ---
Subjective Date Seen by a Provider: May 07, 2018 Time Seen by a Provider: 12:50 Subjective/Events-last exam no specific complaints. White cell count back to normal. Hypokalemia. Minimal output from the nasogastric tube. Lactic acid decreased. Review of Systems General: No Chills, No Night Sweats, No Fatigue, No Malaise HEENT: No Head Aches, No Eye Pain, No Ear Pain, No Dysphasia, No Sinus Congestion, No Post Nasal Drip, No Sore Throat Cardiovascular: No: Chest Pain, Palpitations, Orthopnea, Paroxysmal Noc. Dyspnea, Edema, Lt Headedness Gastrointestinal: No: Nausea, Vomiting, Abdominal Pain, Diarrhea, Constipation , Melena, Hematochezia Genitourinary: No Dysuria, No Frequency, No Incontinence, No Hematuria, No Retention Musculoskeletal: other Neurological: No: Weakness, Numbness, Incoordination, Change in speech, Confusion, Seizures, Other Focused Exam Lactate Level 05/06/18 12:19: Lactic Acid Level 3.23*H 05/06/18 15:15: Lactic Acid Level 1.48 Objective Exam Vital Signs Date Time Temp Pulse Resp B/P (MAP) Pulse Ox O2 Delivery O2 Flow Rate FiO2 05/07/18 11:08 98.3 05/07/18 10:00 63 9 125/61 (82) 99 Nasal Cannula 2.00 05/07/18 09:00 58 25 124/50 (74) 100 Nasal Cannula 2.00 05/07/18 08:24 Nasal Cannula 2.00 05/07/18 08:00 65 26 109/67 (81) 100 Nasal Cannula 2.00 05/07/18 07:38 98.2 05/07/18 07:01 56 05/07/18 07:00 57 24 116/52 (73) 99 Nasal Cannula 2.00 05/07/18 06:00 65 12 122/56 (78) 100 Nasal Cannula 2.00 05/07/18 05:00 53 19 119/52 (74) 100 Nasal Cannula 2.00 05/07/18 04:00 97.7 70 15 115/69 (84) 98 Nasal Cannula 2.00 05/07/18 04:00 98 Nasal Cannula 2.00 05/07/18 03:00 56 21 102/48 (66) 100 Nasal Cannula 2.00 05/07/18 02:00 69 26 102/61 (75) 98 Nasal Cannula 2.00 05/07/18 01:00 69 22 106/53 (70) 99 Nasal Cannula 2.00 05/07/18 01:00 70 05/07/18 00:00 73 20 103/59 (74) 96 Nasal Cannula 2.00 05/06/18 23:43 Nasal Cannula 2.00 05/06/18 23:37 Nasal Cannula 2.00 05/06/18 23:35 92 Room Air 05/06/18 23:30 98.2 77 18 89/38 (55) 92 Room Air 05/06/18 23:00 76 15 88/45 (59) 92 Room Air 05/06/18 22:00 70 16 116/59 (78) 94 Room Air 05/06/18 21:00 79 22 100/53 (69) 93 Room Air 05/06/18 20:00 79 22 92/53 (66) 93 Room Air 05/06/18 19:45 93 Room Air 05/06/18 19:00 93 05/06/18 19:00 98.8 89 20 96/65 (75) 93 Room Air 05/06/18 18:00 93 27 83/43 (56) 93 Room Air 05/06/18 17:00 96 27 94/56 (69) 94 Room Air 05/06/18 16:03 Room Air 05/06/18 16:00 92 24 92/55 (67) 93 Room Air 05/06/18 15:45 95 10 65/46 (52) 96 Room Air 05/06/18 15:30 98 32 105/51 (69) 97 Room Air 05/06/18 15:22 98.8 05/06/18 15:15 97 55 92/48 (63) 96 Room Air 05/06/18 15:00 99 17 90/54 (66) 97 Room Air 05/06/18 14:45 97 24 95/56 (69) 95 Room Air 05/06/18 14:30 95 10 83/41 (55) 96 Room Air 05/06/18 14:15 93 21 139/44 (75) 93 Room Air 05/06/18 14:15 98.1 92 12 139/44 (75) 96 Room Air 05/06/18 14:03 94 05/06/18 13:55 Room Air 05/06/18 13:35 97.6 99 17 97/78 (84) 94 Room Air I & O 05/07/18 07:00 Intake Total 6440 ml Output Total 1005 ml Balance 5435 ml Capillary Refill : Less Than 3 Seconds General Appearance: Anxious Neck: Normal Inspection Respiratory: Lungs Clear Cardiovascular: Regular Rate, Rhythm Gastrointestinal: hernia Neurologic/Psychiatric: Alert, Oriented x3 Skin: Warm/Dry Results Lab Laboratory Tests 05/06/18 15:15: Lactic Acid Level 1.48 05/06/18 15:40: Urine Color YELLOW, Urine Clarity VERY CLOUDYH, Urine pH 6, Urine Specific [place] 1.015L, Urine Protein 3+H, Urine Glucose (UA) NEGATIVE, Urine Ketones 1+ H, Urine Nitrite NEGATIVE, Urine Bilirubin NEGATIVE, Urine Urobilinogen NORMAL, Urine Leukocyte Esterase 1+H, Urine RBC (Auto) 2+H, Urine RBC 5-10H, Urine WBC 2 -5, Urine Crystals NONE, Urine Bacteria NONE, Urine Casts PRESENT, Urine Hyaline Casts >50H, Urine Granular Casts 2-5H, Urine Mucus NEGATIVE, Urine Culture Indicated NO 05/06/18 23:36: Glucometer 97 05/07/18 03:10: White Blood Count 10.0, Red Blood Count 3.59L, Hemoglobin 10.0#L, Hematocrit 33L , Mean Corpuscular Volume 91, Mean Corpuscular Hemoglobin 28, Mean Corpuscular Hemoglobin Concent 31L, Red Cell Distribution Width 15.8H, Platelet Count 134, Mean Platelet Volume 12.7H, Neutrophils (%) (Auto) 70, Lymphocytes (%) (Auto) 17 , Monocytes (%) (Auto) 13H, Eosinophils (%) (Auto) 0, Basophils (%) (Auto) 0, Neutrophils # (Auto) 7.0, Lymphocytes # (Auto) 1.7, Monocytes # (Auto) 1.3H, Eosinophils # (Auto) 0.0, Basophils # (Auto) 0.0, Sodium Level 148H, Potassium Level 2.3*L, Chloride Level 99, Carbon Dioxide Level 37H, Anion Gap 12, Blood Urea Nitrogen 43H, Creatinine 0.96, Estimat Glomerular Filtration Rate 57, BUN/ Creatinine Ratio 45, Glucose Level 94, Calcium Level 7.9L, Corrected Calcium 8.8 , Phosphorus Level 2.6, Magnesium Level 2.1, Total Bilirubin 1.0, Aspartate Amino Transf (AST/SGOT) 21, Alanine Aminotransferase (ALT/SGPT) 13, Alkaline Phosphatase 53, Total Protein 5.3L, Albumin 2.9L 05/07/18 12:30: Sodium Level 148H, Potassium Level 3.1L, Chloride Level 104, Carbon Dioxide Level 34H, Anion Gap 10, Blood Urea Nitrogen 31H, Creatinine 0.77, Estimat Glomerular Filtration Rate > 60, BUN/Creatinine Ratio 40, Glucose Level 83, Calcium Level 8.1L Assessment/Plan Assessment/Plan Assess & Plan/Chief Complaint lady with acute gastric dilatation. Long-standing ventral hernia containing stomach small bowel and colon. Sacral decubitus ulcer. Leukocytosis and elevated lactic acid. Reasonable to administer IV antibiotics. Nasogastric tube has been placed to decompress stomach. Fluid replacement as needed. Monitor closely. lady with acute gastric dilatation, currently resolved. Most likely NG tube will be removed tomorrow. Hypokalemia, being addressed by her primary physician. Sacral decubitus, continue wound care Final Diagnosis acute gastric dilatation. Clinical Quality Measures DVT/VTE Risk/Contraindication: Risk Factor Score Per Nursin RFS Level Per Nursing on Admit: 3=High BRIEN RIOS MD May 07, 2018 13:23
[2018-05-07] MEDS: 1/2 NS IV SOLUTION 1,000 ML IV SCH ×2 (14:51→23:43)
--- NOTE | 2018-05-07 20:00 | NUR ---
Life alert necklace sent home with daughter Katharina.
[2018-05-08] VITALS (17 sets, daily range): BP systolic 127–159; BP diastolic 57–78
[2018-05-08 03:39] LABS: BASOPHILS % (AUTO) 0 % (0-10); EOSINOPHILS % (AUTO) 0 % (0-10); HEMATOCRIT 33 % (35-52); HEMOGLOBIN 9.9 G/DL (11.5-16.0); LYMPHOCYTES # (AUTO) 1.4 X 10^3 (1.0-4.0); LYMPHOCYTES % (AUTO) 19 % (12-44); MEAN CORPUSCULAR HEMOGLOBIN 28 PG (25-34); MEAN CORPUSCULAR HGB CONC 31 G/DL (32-36); MEAN CORPUSCULAR VOLUME 92 FL (80-99); MEAN PLATELET VOLUME 12.8 FL (7.4-10.4); MONOCYTES # (AUTO) 0.8 X 10^3 (0.0-1.0); MONOCYTES % (AUTO) 10 % (0-12); NEUTROPHILS # (AUTO) 5.4 X 10^3 (1.8-7.8); NEUTROPHILS % (AUTO) 71 % (42-75); PLATELET COUNT 113 10^3/uL (130-400); RED CELL DISTRIBUTION WIDTH 14.9 % (10.0-14.5); WHITE BLOOD COUNT 7.6 10^3/uL (4.3-11.0)
[2018-05-08 04:07] LABS: ALANINE AMINOTRANSFERASE 15 U/L (0-55); ALBUMIN 3.1 GM/DL (3.2-4.5); ALKALINE PHOSPHATASE 53 U/L (40-136); BILIRUBIN,TOTAL 0.8 MG/DL (0.1-1.0); BUN/CREATININE RATIO 36; CALCIUM 8.3 MG/DL (8.5-10.1); CARBON DIOXIDE 26 MMOL/L (21-32); CHLORIDE 106 MMOL/L (98-107); GFR ESTIMATED > 60; GLUCOSE 63 MG/DL (70-105); MAGNESIUM 2.2 MG/DL (1.8-2.4); PHOSPHORUS 1.8 MG/DL (2.3-4.7); POTASSIUM 3.2 MMOL/L (3.6-5.0); SODIUM 147 MMOL/L (135-145); TOTAL PROTEIN 5.6 GM/DL (6.4-8.2)
[2018-05-08] MEDS: KCL 20 MEQ TAB (K-DUR) PO SCH (04:11)
[2018-05-08] MEDS: MAGNESIUM 1 GM/100 ML IVPB 100 ML IV SCH (04:11)
[2018-05-08] MEDS: POTASSIUM CL 10MEQ/50ML IVPB 50 ML IV SCH ×5 (04:15→07:40)
[2018-05-08] MEDS: NOREPINEPHRINE 4 MG in NS (IVPB) 250 ML IV SCH (04:15)
--- NOTE | 2018-05-08 04:35 | NUR ---
Patient am lab glucose result 68. Bedside finger stick 62. [place] juice with sugar packets placed down NG tube and clamped at this time. Patient asymptomatic.
--- NOTE | 2018-05-08 04:39 | NUR ---
Attempted to remove oxygen from patient, patient oxygen saturation dropped to 88% immediately. Oxygen placed back on the patient at 2L.
[2018-05-08] MEDS ORDERED: DEXTROSE 50% 50 ML (IMS) SYR ONE (05:10)
[2018-05-08] MEDS ORDERED: GLUCAGON EMERGENCY 1 MG/KIT IM PRN (07:00)
[2018-05-08] MEDS ORDERED: DEXTROSE 50% 50 ML (IMS) SYR IV PRN (07:00)
[2018-05-08] MEDS ORDERED: DEXTROSE 10% IV SOLUTION 1,000 ML IV PRN (07:00)
[2018-05-08] MEDS: cefTRIAXone 1 GM/NS 50 ML IVPB IV SCH ×2 (08:31)
[2018-05-08] MEDS: PANTOPRAZOLE 40 MG (PROTONIX) VIAL IV SCH (08:31)
--- NOTE | 2018-05-08 09:11 | Diagnostic Imaging Report ---
INDICATION: Shortness of breath COMPARISON: 05/07/2018 FINDINGS: A single view of the chest demonstrates cardiac enlargement with persistent but decreased central vascular congestion. There is new infiltrate in the left infrahilar region. The effusion in the left costophrenic angle is no longer seen. There is no pneumothorax. The NG tube is stable. IMPRESSION: 1. New infiltrate in the left infrahilar region. 2. Cardiac enlargement with persistent but decreased central vascular congestion. 3. Resolved left-sided effusion. Dictated by: Dictated on workstation # [id number]
[2018-05-08] MEDS: 1/2 NS IV SOLUTION 1,000 ML IV SCH (10:10)
[2018-05-08] MEDS: ENOXAPARIN 40 MG/0.4 ML (LOVENOX) SYR SQ SCH (10:11)
--- NOTE | 2018-05-08 11:52 | Progress Note (SOAP) ---
Subjective Subjective/Events-last exam Patient without complaints this AM. Denies any pain. + flatus. NPO status at this time but did receive sips of juice last night due to low blood sugars and did well, no return of nausea or vomiting Review of Systems Date Seen by Provider: May 08, 2018 Time Seen by Provider: 11:48 Pulmonary: No Dyspnea, No Cough Cardiovascular: No: Chest Pain, Palpitations Gastrointestinal: No: Nausea, Vomiting, Abdominal Pain Focused Exam Lactate Level 05/06/18 12:19: Lactic Acid Level 3.23*H 05/06/18 15:15: Lactic Acid Level 1.48 Objective Exam Last Set of Vital Signs Vital Signs Date Time Temp Pulse Resp B/P (MAP) Pulse Ox O2 Delivery O2 Flow Rate FiO2 05/08/18 10:00 68 26 130/63 (85) 98 Nasal Cannula 1.00 05/08/18 07:52 98.2 Capillary Refill : Less Than 3 Seconds I&O Intake and Output 05/08/18 00:00 Intake Total 3940 ml Output Total 1440 ml Balance 2500 ml Intake Oral 0 ml IV Total 3850 ml Other 90 ml Output Urine Total 910 ml Gastric Drainage Total 530 ml General: Alert, Oriented X3, Cooperative, No Acute Distress HEENT: Mucous Memb Moist/[place] Lungs: Clear to Auscultation, Normal Air Movement Heart: Regular Rate, No Murmurs Abdomen: Soft, No Tenderness, Other (Large ventral hernia w/o erythema or skin changes) Extremities: No Edema, No Tenderness/Swelling Psych/Mental Status: Mental Status NL, Other (depressed mood) Results/Procedures Lab Laboratory Tests 05/07/18 12:30: Sodium Level 148H, Potassium Level 3.1L, Chloride Level 104, Carbon Dioxide Level 34H, Anion Gap 10, Blood Urea Nitrogen 31H, Creatinine 0.77, Estimat Glomerular Filtration Rate > 60, BUN/Creatinine Ratio 40, Glucose Level 83, Calcium Level 8.1L 05/07/18 17:08: Glucometer 73 05/08/18 03:25: Sodium Level 147H, Potassium Level 3.2L, Chloride Level 106, Carbon Dioxide Level 26, Anion Gap 15H, Blood Urea Nitrogen 25H, Creatinine 0.70, Estimat Glomerular Filtration Rate > 60, BUN/Creatinine Ratio 36, Glucose Level 63L, Calcium Level 8.3L, White Blood Count 7.6, Red Blood Count 3.54L, Hemoglobin 9.9L, Hematocrit 33L, Mean Corpuscular Volume 92, Mean Corpuscular Hemoglobin 28 , Mean Corpuscular Hemoglobin Concent 31L, Red Cell Distribution Width 14.9H, Platelet Count 113L, Mean Platelet Volume 12.8H, Neutrophils (%) (Auto) 71, Lymphocytes (%) (Auto) 19, Monocytes (%) (Auto) 10, Eosinophils (%) (Auto) 0, Basophils (%) (Auto) 0, Neutrophils # (Auto) 5.4, Lymphocytes # (Auto) 1.4, Monocytes # (Auto) 0.8, Eosinophils # (Auto) 0.0, Basophils # (Auto) 0.0, Corrected Calcium 9.0, Phosphorus Level 1.8L, Magnesium Level 2.2, Total Bilirubin 0.8, Aspartate Amino Transf (AST/SGOT) 27, Alanine Aminotransferase ( ALT/SGPT) 15, Alkaline Phosphatase 53, Total Protein 5.6L, Albumin 3.1L 05/08/18 04:23: Glucometer 62L 05/08/18 05:10: Glucometer 57*L 05/08/18 05:46: Glucometer 101 05/08/18 10:55: Glucometer 64L Microbiology 05/06/18 Blood Culture - Preliminary, Resulted No growth 05/06/18 MRSA Screen - Final, Complete MRSA not isolated Radiology Date of Exam: 05/06/18 CT ABDOMEN/PELVIS WO PROCEDURE: CT abdomen and pelvis without contrast. TECHNIQUE: Multiple contiguous axial images were obtained through the abdomen and pelvis without the use of intravenous contrast. INDICATION: Vomiting and abdominal pain. No prior studies are available for comparison. The lung bases are clear. The distal esophagus is distended and fluid-filled. There is marked fluid-filled distention to the stomach. A large portion of the stomach extends through an abdominal wall defect in the midline. The herniated portion of stomach is also fluid filled and distended. A large amount of bowel loops are also present in the hernia sac which appear to be primarily colonic bowel loops, likely in the left colon. There appears to be a gastric outlet obstruction. Level of the obstruction appears to be at the pylorus which appears to be significantly narrowed at the abdominal wall anteriorly at the point of reentry into the abdomen. Pylorus is herniated with the remainder of the distal stomach. The colon does not appear to be obstructed. No wall thickening or pneumatosis is seen. Intra-abdominal small bowel loops are normal caliber. There is diverticulosis of the distal colon. Uterus contains a large calcification consistent with fibroid. There is no ascites. Liver is unremarkable. Gallbladder contains small stones. The pancreas and spleen are unremarkable. Adrenal glands and kidneys are unremarkable. Aorta is calcified but nonaneurysmal. IMPRESSION: Midline ventral hernia containing the distal stomach and gastric outlet as well as multiple colonic bowel loops. The stomach and distal esophagus are significantly distended with fluid. Features are consistent with gastric outlet obstruction. No definite small or large bowel obstruction is seen. Patient would likely benefit from a nasogastric tube. Cholelithiasis. Uncomplicated diverticulosis. Assessment/Plan Assessment/Plan (1) Ventral hernia with bowel obstruction Status: Acute Assessment & Plan: - Large Ventral Hernia containing Stomach, segments of small bowel and segments of large bowel, Dr Girard consulted and managing, continue NG for decompression and NPO 05/08: clamp NG and start CLD if ok with surgery (2) Sepsis Status: Resolved Assessment & Plan: - VS have stabilized this AM, Continue IV antibiotics 05/08: Will decrease IVFs and continue to monitor VS, LA resolved, Continue antibiotics Qualifiers: Qualified Codes: A41.9 - Sepsis, unspecified organism (3) Decubital ulcer Status: Chronic Assessment & Plan: - Follows with wound care outpatient, will notify Dr Iyer patient is admitted Qualifiers: Qualified Codes: L89.159 - Pressure ulcer of sacral region, unspecified stage (4) Acute kidney failure Status: Resolved Assessment & Plan: - Likely Prerenal 2/2 dehydration as it has resolved with IVFs (5) Leukocytosis Status: Resolved (6) Hypokalemia Status: Acute Assessment & Plan: - Continue with replacement (7) Debility Status: Acute Assessment & Plan: -PT/OT (8) DVT prophylaxis Status: Acute Assessment & Plan: - Lovenox - Ok to transfer patient to floor Clinical Quality Measures DVT/VTE Risk/Contraindication: Risk Factor Score Per Nursin RFS Level Per Nursing on Admit: 3=High REX BOYKIN MD May 08, 2018 11:52
--- NOTE | 2018-05-08 12:04 | NUR ---
OK TO D/C NG TUBE AND START CLD PER DR RIOS.
--- NOTE | 2018-05-08 12:31 | Progress Note (SOAP) ---
Subjective Date Seen by a Provider: May 08, 2018 Time Seen by a Provider: 12:05 Subjective/Events-last exam NG tube removed. Passing flatus. Afebrile. Renal function back to normal. Hypokalemia continues, being addressed. Review of Systems General: No Chills, No Night Sweats, No Fatigue, No Malaise HEENT: No Head Aches, No Eye Pain, No Ear Pain, No Dysphasia, No Sinus Congestion, No Post Nasal Drip, No Sore Throat Pulmonary: No Dyspnea, No Cough, No Pleuritic Chest Pain Gastrointestinal: No: Nausea, Vomiting, Abdominal Pain, Diarrhea, Constipation , Melena, Hematochezia Musculoskeletal: No: other, neck pain, shoulder pain, arm pain, back pain, hand pain, leg pain, foot pain Neurological: No: Weakness, Numbness, Incoordination, Change in speech, Confusion, Seizures, Other Focused Exam Lactate Level 05/06/18 12:19: Lactic Acid Level 3.23*H 05/06/18 15:15: Lactic Acid Level 1.48 Objective Exam Vital Signs Date Time Temp Pulse Resp B/P (MAP) Pulse Ox O2 Delivery O2 Flow Rate FiO2 05/08/18 12:18 Nasal Cannula 1.00 05/08/18 12:04 98.2 05/08/18 10:00 68 26 130/63 (85) 98 Nasal Cannula 1.00 05/08/18 09:00 70 27 131/57 (81) 98 Nasal Cannula 1.00 05/08/18 08:03 Nasal Cannula 1.00 05/08/18 08:00 70 55 127/58 (81) 97 Nasal Cannula 1.00 05/08/18 07:52 98.2 05/08/18 07:12 75 05/08/18 07:01 Nasal Cannula 1.00 05/08/18 07:00 64 26 134/63 (86) 97 Nasal Cannula 1.00 05/08/18 06:00 75 24 136/62 (86) 96 Nasal Cannula 1.00 05/08/18 05:00 68 23 147/59 (88) 99 Nasal Cannula 1.00 05/08/18 04:42 Nasal Cannula 1.00 05/08/18 04:39 Nasal Cannula 2.00 05/08/18 04:30 Room Air 05/08/18 04:00 68 23 159/68 (98) 99 Nasal Cannula 2.00 05/08/18 03:35 99 Nasal Cannula 2.00 05/08/18 03:35 98.5 05/08/18 03:00 68 22 146/78 (100) 99 Nasal Cannula 2.00 05/08/18 02:00 69 18 133/70 (91) 99 Nasal Cannula 2.00 05/08/18 01:00 70 15 134/71 (92) 99 Nasal Cannula 2.00 05/08/18 01:00 71 05/08/18 00:00 71 15 138/74 (95) 99 Nasal Cannula 2.00 05/07/18 23:40 98.3 Nasal Cannula 2.00 05/07/18 23:25 97 Nasal Cannula 2.00 05/07/18 23:00 71 17 146/74 (98) 99 Nasal Cannula 2.00 05/07/18 22:00 71 15 132/68 (89) 99 Nasal Cannula 2.00 05/07/18 21:10 Nasal Cannula 2.00 05/07/18 21:00 67 18 134/65 (88) 100 Nasal Cannula 2.00 05/07/18 20:00 58 10 139/68 (91) 97 Nasal Cannula 2.00 05/07/18 19:35 98 Nasal Cannula 2.00 05/07/18 19:00 66 05/07/18 19:00 98.9 63 20 140/62 (88) 98 Nasal Cannula 2.00 05/07/18 18:00 63 9 119/65 (83) 97 Nasal Cannula 2.00 05/07/18 17:00 72 8 115/66 (82) 98 Nasal Cannula 2.00 05/07/18 16:09 97.2 05/07/18 16:07 Nasal Cannula 2.00 05/07/18 16:00 64 18 119/55 (76) 95 Nasal Cannula 2.00 05/07/18 15:00 59 34 119/46 (70) 98 Nasal Cannula 2.00 05/07/18 14:00 62 15 123/62 (82) 97 Nasal Cannula 2.00 05/07/18 13:19 64 05/07/18 13:00 65 27 135/73 (93) 98 Nasal Cannula 2.00 I & O 05/08/18 07:00 Intake Total 3030 ml Output Total 1460 ml Balance 1570 ml Capillary Refill : Less Than 3 Seconds General Appearance: No Apparent Distress Neck: Normal Inspection Respiratory: Lungs Clear Cardiovascular: Regular Rate, Rhythm Gastrointestinal: non tender, soft, hernia Neurologic/Psychiatric: Oriented x3 Skin: Warm/Dry Results Lab Laboratory Tests 05/07/18 17:08: Glucometer 73 05/08/18 03:25: White Blood Count 7.6, Red Blood Count 3.54L, Hemoglobin 9.9L, Hematocrit 33L, Mean Corpuscular Volume 92, Mean Corpuscular Hemoglobin 28, Mean Corpuscular Hemoglobin Concent 31L, Red Cell Distribution Width 14.9H, Platelet Count 113L, Mean Platelet Volume 12.8H, Neutrophils (%) (Auto) 71, Lymphocytes (%) (Auto) 19 , Monocytes (%) (Auto) 10, Eosinophils (%) (Auto) 0, Basophils (%) (Auto) 0, Neutrophils # (Auto) 5.4, Lymphocytes # (Auto) 1.4, Monocytes # (Auto) 0.8, Eosinophils # (Auto) 0.0, Basophils # (Auto) 0.0, Sodium Level 147H, Potassium Level 3.2L, Chloride Level 106, Carbon Dioxide Level 26, Anion Gap 15H, Blood Urea Nitrogen 25H, Creatinine 0.70, Estimat Glomerular Filtration Rate > 60, BUN /Creatinine Ratio 36, Glucose Level 63L, Calcium Level 8.3L, Corrected Calcium 9.0, Phosphorus Level 1.8L, Magnesium Level 2.2, Total Bilirubin 0.8, Aspartate Amino Transf (AST/SGOT) 27, Alanine Aminotransferase (ALT/SGPT) 15, Alkaline Phosphatase 53, Total Protein 5.6L, Albumin 3.1L 05/08/18 04:23: Glucometer 62L 05/08/18 05:10: Glucometer 57*L 05/08/18 05:46: Glucometer 101 05/08/18 10:55: Glucometer 64L Microbiology 05/06/18 Blood Culture - Preliminary, Resulted No growth 05/06/18 MRSA Screen - Final, Complete MRSA not isolated Assessment/Plan Assessment/Plan Assess & Plan/Chief Complaint lady with acute gastric dilatation. Long-standing ventral hernia containing stomach small bowel and colon. Sacral decubitus ulcer. Leukocytosis and elevated lactic acid. Reasonable to administer IV antibiotics. Nasogastric tube has been placed to decompress stomach. Fluid replacement as needed. Monitor closely. lady with acute gastric dilatation, currently resolved. Most likely NG tube will be removed tomorrow. Hypokalemia, being addressed by her primary physician. Sacral decubitus, continue wound care. resolved acute gastric dilatation. Final Diagnosis acute gastric dilatation, resolved. Long-standing, large ventral hernia. Sacral decubitus ulcer. Clinical Quality Measures DVT/VTE Risk/Contraindication: Risk Factor Score Per Nursin RFS Level Per Nursing on Admit: 3=High BRIEN RIOS MD May 08, 2018 12:31
--- NOTE | 2018-05-08 13:41 | NUR ---
PT'S DAUGHTER CHANGING PT'S DRESSING AT THIS TIME. WILL ALSO BRING HOME VERAPAMIL TOMORROW.
--- NOTE | 2018-05-08 14:02 | NUR ---
PT TRANSFERRED TO [facility] VIA CHAIR W/ FAMILY, STAFF, AND PERSONAL BELONGINGS. REPORT GIVEN TO FLORENCIO THOMSON, NO QUESTIONS/CONCERNS VOICED.
[2018-05-08] MEDS: SIMvastatin 10 MG (ZOCOR) TAB PO SCH (17:43)
[2018-05-08] MEDS: LINEZOLID (ZYVOX) 600 MG TAB PO SCH (20:21)
[2018-05-09] VITALS (10 sets, daily range): BP systolic 90–198; BP diastolic 46–95
[2018-05-09] MEDS: 1/2 NS IV SOLUTION 1,000 ML IV SCH (04:32)
[2018-05-09 04:58] LABS: BASOPHILS % (AUTO) 0 % (0-10); EOSINOPHILS # (AUTO) 0.1 10^3/uL (0.0-0.3); EOSINOPHILS % (AUTO) 2 % (0-10); HEMATOCRIT 31 % (35-52); HEMOGLOBIN 9.9 G/DL (11.5-16.0); LYMPHOCYTES # (AUTO) 1.5 X 10^3 (1.0-4.0); LYMPHOCYTES % (AUTO) 26 % (12-44); MEAN CORPUSCULAR HEMOGLOBIN 29 PG (25-34); MEAN CORPUSCULAR HGB CONC 32 G/DL (32-36); MEAN CORPUSCULAR VOLUME 90 FL (80-99); MEAN PLATELET VOLUME 12.7 FL (7.4-10.4); MONOCYTES # (AUTO) 0.6 X 10^3 (0.0-1.0); MONOCYTES % (AUTO) 10 % (0-12); NEUTROPHILS # (AUTO) 3.6 X 10^3 (1.8-7.8); NEUTROPHILS % (AUTO) 62 % (42-75); PLATELET COUNT 114 10^3/uL (130-400); RED CELL DISTRIBUTION WIDTH 14.8 % (10.0-14.5); WHITE BLOOD COUNT 5.8 10^3/uL (4.3-11.0)
[2018-05-09 05:20] LABS: ALANINE AMINOTRANSFERASE 13 U/L (0-55); ALBUMIN 2.9 GM/DL (3.2-4.5); ALKALINE PHOSPHATASE 53 U/L (40-136); BILIRUBIN,TOTAL 0.8 MG/DL (0.1-1.0); BUN/CREATININE RATIO 18; CARBON DIOXIDE 27 MMOL/L (21-32); CHLORIDE 106 MMOL/L (98-107); CREATININE SERUM 0.62 MG/DL (0.60-1.30); GFR ESTIMATED > 60; GLUCOSE 101 MG/DL (70-105); MAGNESIUM 1.6 MG/DL (1.8-2.4); POTASSIUM 3.1 MMOL/L (3.6-5.0); SODIUM 143 MMOL/L (135-145); TOTAL PROTEIN 5.2 GM/DL (6.4-8.2)
--- NOTE | 2018-05-09 07:52 | Diagnostic Imaging Report ---
EXAMINATION: Portable erect AP chest at 3:01 AM INDICATION: Pneumonia The appearance of the chest has worsened since the prior exam of 05/08/2018. The pneumonia/atelectasis involving the left lung base seen previously has increased. A small amount of fluid has also developed in the left lung base. Left upper lung and right lung remain generally clear. The cardiomegaly noted previously is again visualized and no different. The mediastinum is not widened. The osseous structures are intact. IMPRESSION: The appearance of the chest has worsened since the prior study as there is greater involvement of the left lung base by pneumonia/atelectasis. A small amount of fluid has also developed in the left lung base. A followup study would be recommended for continued evaluation. Dictated by: Dictated on workstation # [id number]
[2018-05-09] MEDS: LINEZOLID (ZYVOX) 600 MG TAB PO SCH ×2 (09:11→21:27)
[2018-05-09] MEDS: cefTRIAXone 1 GM/NS 50 ML IVPB IV SCH ×2 (09:13)
[2018-05-09] MEDS: PANTOPRAZOLE 40 MG (PROTONIX) VIAL IV SCH (09:14)
[2018-05-09] MEDS ORDERED: POTASSIUM PHOSPHATE INJ 30 MM in NS (IVPB) 250 ML IV ONE (09:15)
--- NOTE | 2018-05-09 09:22 | NUR ---
CM/SS responded to the SS consult that daughter of the patient was wanting to look into placement. Spoke with patient's daughter. Patient was at [facility] in Dec 2017 and they would like to see if she can return there for longterm to build strength before she would possibly return home. Referral packet sent to [facility] to check patient's available skilled days and if facility would be able to accept the patient when she is able to discharge.
--- NOTE | 2018-05-09 09:37 | Progress Note-Hospitalist ---
LILLIAN KIM DO 05/09/18 0937: Subjective HPI/CC On Admission Date Seen by Provider: May 09, 2018 Time Seen by Provider: 09:00 Subjective/Events-last exam Patient doing much better since she is unable to eat and drink Will discontinue telemetry Hep-locked IV fluid Home meds were reviewed Physical therapy and occupational therapy will be consulted Social work for usp placement Low on potassium and phosphorus and we will replace IV No BM yet Review of Systems General: Fatigue Gastrointestinal: Abdominal Pain Focused Exam Lactate Level 05/06/18 15:15: Lactic Acid Level 1.48 Objective Exam Vital Signs Vital Signs Date Time Temp Pulse Resp B/P (MAP) Pulse Ox O2 Delivery O2 Flow Rate FiO2 05/09/18 12:27 99.1 70 18 163/88 (113) 96 Room Air 05/09/18 08:00 Capillary Refill : Less Than 3 Seconds General Appearance: No Apparent Distress, WD/WN, Chronically ill, Thin Respiratory: Chest Non Tender, Lungs Clear, Normal Breath Sounds, No Accessory Muscle Use, No Respiratory Distress Cardiovascular: Regular Rate, Rhythm, No Edema, No Gallop, No JVD, No Murmur, Normal Peripheral Pulses Gastrointestinal: Non Tender, Soft Neurologic/Psychiatric: Alert, Oriented x3, No Motor/Sensory Deficits, Normal Mood/Affect, Disoriented Results/Procedures Lab Laboratory Tests 05/09/18 04:10 Patient resulted labs reviewed. Assessment/Plan Assessment and Plan Assess & Plan/Chief Complaint Assessment: Sepsis Small bowel obstruction Acute renal failure Severe and chronic debility regular require usp placement at discharge Plan: Discontinue telemetry PT and OT evaluation Hep-locked IV fluid Social work for usp placement Replace potassium and phosphorus Diagnosis/Problems Diagnosis/Problems (1) Ventral hernia with bowel obstruction Status: Acute (2) Hypophosphatemia Status: Acute (3) Hypomagnesemia Status: Acute (4) Hypokalemia Status: Acute (5) Sepsis Status: Resolved Qualifiers: Sepsis type: sepsis due to unspecified organism Qualified Codes: A41.9 - Sepsis, unspecified organism Resolution Date/Time: 05/08/18 @ 11:49 (6) Leukocytosis Status: Resolved Qualifiers: Leukocytosis type: leukemoid reaction Qualified Codes: D72.823 - Leukemoid reaction Resolution Date/Time: 05/07/18 @ 11:06 (7) Acute kidney failure Status: Resolved Qualifiers: Acute renal failure type: unspecified Qualified Codes: N17.9 - Acute kidney failure, unspecified Resolution Date/Time: 05/07/18 @ 11:05 (8) Debility Status: Acute (9) Decubital ulcer Status: Chronic Qualifiers: Pressure injury location: sacral region Pressure injury stage: unspecified pressure injury stage Qualified Codes: L89.159 - Pressure ulcer of sacral region, unspecified stage (10) DVT prophylaxis Status: Acute Clinical Quality Measures DVT/VTE Risk/Contraindication: Risk Factor Score Per Nursin RFS Level Per Nursing on Admit: 3=High KENDAL MORGAN MEDICAL STUDENT 05/09/18 1108: Subjective HPI/CC On Admission CC: Emesis HPI: This is a 77-year-old white female w/ a known large ventral hernia who presented to the ER on Wednesday for abdominal pain, emesis, inability to tolerate PO intake, and no BM for approximately 5 days. The pt and daughter reported that the pt saw Dr. Staley in wound care approximately one week ago for a sacral decubitus ulcer and he placed her on Linezolid to cover MRSA. The pt was able to take one dose of the abx before she started vomiting. On arrival to ED, the pt was hypotensive w/ an elevated white count and lactate, as well as an ISELA, concerning for severe sepsis. CT/AP showed severe gastric obstruction and Dr. Girard from General Surgery was consulted. Pt was placed on IVF, IV ceftriaxone , and made NPO w/ NG suction. Since admission her elevated white count, elevated lactate, and ISELA have resolved. Her NG tube was removed yesterday. Daughter expressed concern that she can no longer care for the pt at home and is interested in assisted living at [facility]. foreign exchange services manager will be consulted for placement. PT saw the pt and were able to get pt to walk 300 feet w/ a walker. Subjective/Events-last exam Pt reports she was able to tolerate liquid breakfast w/ no nausea or vomiting. Denies any pain or fevers/chills. States she has been passing gas. Review of Systems General: No Chills, No Fatigue; Appetite Pulmonary: No Dyspnea Cardiovascular: No: Chest Pain Gastrointestinal: No: Nausea, Vomiting, Abdominal Pain, Diarrhea, Constipation Genitourinary: No Dysuria Neurological: No: Weakness Objective Exam General Appearance: No Apparent Distress, WD/WN Respiratory: Chest Non Tender, No Accessory Muscle Use, No Respiratory Distress , Crackles; No Rales, No Wheezing Cardiovascular: Regular Rate, Rhythm, No Edema, No Gallop, No JVD, No Murmur, Normal Peripheral Pulses Gastrointestinal: Normal Bowel Sounds, No Organomegaly, No Pulsatile Mass, Non Tender, Soft, Hernia (Large ventral hernia near umbilicus) Rectal: Deferred Neurologic/Psychiatric: Alert, Oriented x3, No Motor/Sensory Deficits, Normal Mood/Affect Assessment/Plan Assessment and Plan Assess & Plan/Chief Complaint Assessment: Ventral hernia with acute gastric obstruction Sepsis, resolved Leukocytosis, resolved ISELA, resolved PNA vs. atelectasis of Left lung base Potential Refeeding syndrome w/ hypophosphatemia, hypokalemia, and hypomagnesemia, as well as e/o mild volume overload w/ elevated BP and crackles on lung auscultation Sacral decubital ulcer Debility Plan: Continue home meds Advance diet as recommended by surgery Continue IV ceftriaxone Discontinue fluids and color control operator BP Monitor electrolytes, replete as necessary Sugar control PT/OT foreign exchange services manager consulted for placement at [facility] Wound care as outpatient, notify Dr. Staley of admission DVT prophylaxis Diagnosis/Problems Diagnosis/Problems (1) Consolidation of left lower lobe of lung (2) Hypophosphatemia Status: Acute (3) Hypomagnesemia Status: Acute (4) Hypokalemia Status: Acute (5) Ventral hernia with bowel obstruction Status: Acute (6) Sepsis Status: Resolved Qualifiers: Sepsis type: sepsis due to unspecified organism Qualified Codes: A41.9 - Sepsis, unspecified organism Resolution Date/Time: 05/08/18 @ 11:49 (7) Leukocytosis Status: Resolved Qualifiers: Leukocytosis type: leukemoid reaction Qualified Codes: D72.823 - Leukemoid reaction Resolution Date/Time: 05/07/18 @ 11:06 (8) Acute kidney failure Status: Resolved Qualifiers: Acute renal failure type: unspecified Qualified Codes: N17.9 - Acute kidney failure, unspecified Resolution Date/Time: 05/07/18 @ 11:05 (9) Debility Status: Acute (10) Decubital ulcer Status: Chronic Qualifiers: Pressure injury location: sacral region Pressure injury stage: unspecified pressure injury stage Qualified Codes: L89.159 - Pressure ulcer of sacral region, unspecified stage (11) DVT prophylaxis Status: Acute Clinical Quality Measures DVT/VTE Risk/Contraindication: RFS Level Per Nursing on Admit: 3=High LILLIAN KIM DO May 09, 2018 09:37 KENDAL MORGAN MEDICAL STUDENT May 09, 2018 11:08
[2018-05-09] MEDS ORDERED: NS (IVPB) 250 ML ONE (10:40)
[2018-05-09] MEDS: ENOXAPARIN 40 MG/0.4 ML (LOVENOX) SYR SQ SCH (10:40)
--- NOTE | 2018-05-09 10:40 | Physical Therapy Evaluation ---
PT Evaluation-General Medical Diagnosis Admission Date May 06, 2018 at 13:11 Medical Diagnosis: Bowel Obstruction Onset Date: May 06, 2018 Therapy Diagnosis Therapy Diagnosis: decreased mobility, decreased activity tolerance, weakness Height/Weight Height (Feet): 5 Height (Inches): 0.00 Weight (Pounds): 124 Weight (Ounces): 8.0 Precautions Precautions/Isolations: Fall Prevention, Standard Precautions Weight Bear Status Right Lower Extremity: Right Weight Bearing/Tolerated Left Lower Extremity: Left Weight Bearing/Tolerated Referral Physician: Dr. Tracey Reason for Referral: Evaluation/Treatment Medical History Additional Medical History Sacral wound Current History Bowel obstruction Reviewed History: Yes Social History Home: Apartment Current Living Status: Alone Entry Into Home: Stairs Without Railing PT Steps Into Home: 1 Prior/Core FIM Prior Level of Function Therapy Code Descriptions/Definitions Functional [place] Measure: 0=Not Assessed/NA 4=Minimal Assistance 1=Total Assistance 5=Supervision or Setup 2=Maximal Assistance 6=Modified [place] 3=Moderate Assistance 7=Complete [place] Therapy Quality Codes: 6 Independent with activity with or without an assistive device 5 Patient requires set up or clean up by helper. Patient completes activity by themselves 4 Supervision or touching assist (CGA). [place] provide cues , steadying assist 3 The helper provides less than half the effort to complete the activity 2 The helper provides more than half the effort to complete the activity 1 Dependent. The helper does all the effort to complete an activity 7 Patient refused to complete or attempt activity 9 The patient did not perform the activity before the current illness or injury 88 Not attempted due to Medical conditions or safety concerns Functional Abilities and Goals: Independent: Patient completed the activities by him/herself, with or without an assistive device, with no assistance from a helper. Needed Some Help: Patient needed partial assistance from another person to complete activities. Dependent: A helper completed the activities for the patient. Unknown: Not Applicable: Bed Mobility: 6 Transfers (B,C,W/C) (FIM): 6 Gait: 6 Stairs: 6 Indoor Mobility (Ambulation): Independent Stairs: Independent Prior Devices Use: Walker Prior Device Use: FWW PT Evaluation-Current Subjective Pt was in bed and agreed to PT. Reports that the wound Dr is suppose to come and visit her sometime today. Pain Numeric Pain Scale: 0-No Pain Location: No Pain Reported Objective Patient Orientation: Person Problem Solving: Fair Attachments: IV ROM/Strength ROM Lower Extremities WNL Strength Lower Extremities Bilateral gross motor strength 4-/5 Integumentary/Posture Bowel Incontinence: Yes Bladder Incontinence: No Neuromuscular (Tone, Coordination, Reflexes) grossly intact Sensory Vision: Functional Hearing: Functional Sensation Right Lower Extremit: Intact Sensation Left Lower Extremity: Intact Transfers Therapy Code Descriptions/Definitions Functional [place] Measure: 0=Not Assessed/NA 4=Minimal Assistance 1=Total Assistance 5=Supervision or Setup 2=Maximal Assistance 6=Modified [place] 3=Moderate Assistance 7=Complete [place] Transfers (B, C, W/C) (FIM): 4 Scootin Rollin Supine to/from Sit: 5 Sit to/from Stand: 4 Gait Mode of Locomotion: Walk Gait (FIM): 4 Distance (FIM): 3=150 ft Distance: 300' Gait Level of Assist: 4 Gait Persons Needed: 1 Gait Assistive Device: FWW Balance Sitting Static: Good Sitting Dynamic: Good Standing Static: Good Standing Dynamic: Good Assessment/Needs Pt was able to perform bed mobility with SBA. Pt transfers with CGA to FWW. Pt was able to perform bathroom skills with min A. Pt was able to amb 300' with FWW and CGA. Pt amb with a reciprocal pattern and slow gait speed. Pt returned to room to bed with nursing in to help position her to a side to relieve pressure from sacral wound. Pt has all needs met. Rehab Potential: Fair Post Rehab Potential-Barriers: Sacral Wound PT Short Term Goals Short Term Goals Time Frame: May 16, 2018 Transfers (B,C,W/C) (FIM): 6 Gait (FIM): 6 Distance (FIM): 3=150 ft Gait Distance Comment: 500' Gait Level of Assist: 6 Gait Assistive Device: FWW Stairs (FIM): 2 # of Steps: 1 Stairs Level of Assist: 2 PT Plan Problem List Problem List: Activity Tolerance, Functional Strength, Safety, Balance, Gait, Transfer, Bed Mobility Treatment/Plan Treatment Plan: Continue Plan of Care Treatment Plan: Bed Mobility, Education, Functional Activity Patrick, Functional Strength, Gait, Safety, Therapeutic Exercise, Transfers Treatment Duration: May 16, 2018 Frequency: 6 times per week Estimated Hrs Per Day: .25 hour per day Patient and/or Family Agrees t: Yes Safety Risks/Education Patient Education: Gait Training, Transfer Techniques, Steps, Correct Positioning, W/C Management Teaching Recipient: Patient, Family Teaching Methods: Demonstration, Discussion Response to Teaching: Verbalize Understanding, Return Demonstration, Reinforcement Needed Discharge Recommendations Therapy D/C Recommendations: Home w/ Family Support, Home Independently, Half-Way Placement, Custodial (TCU/NH) Time/GCodes Time In: 954 Time Out: 1013 Total Billed Treatment Time: 19 Total Billed Treatment 1 visit EVlowC 19 min GREGORIO TORRES PT May 09, 2018 10:40
--- NOTE | 2018-05-09 11:50 | NUR ---
CM/SS [facility] is able to accept the patient when she ready to discharge. Updated the patient's daughter of acceptance at [facility].
--- NOTE | 2018-05-09 12:46 | Wound Care Assessment ---
Wound Care Assessment Date Seen by Provider: May 09, 2018 Time Seen by Provider: 12:38 Chief Complaint Sacral ulcer. HPI The patient is a 77 year old female with a Stage 4 pressure ulcer of the sacral area. The patient is known to me from the wound clinic. There have been concerns in regards to her nutrition. Her wound dressings are changed from Hydrofera blue to silver alginate due to availability. On low air loss mattress with frequent repositioning. Past Medical History: Admits Heart Disease COPD Recreational Drug Use: No Alcohol Use: Denies Use Review of Systems Pulmonary: No Dyspnea Cardiovascular: No: Chest Pain Exam Vital Signs Date Time Temp Pulse Resp B/P (MAP) Pulse Ox O2 Delivery O2 Flow Rate FiO2 05/09/18 08:00 99.0 63 18 158/80 (106) 96 Nasal Cannula 1.00 Capillary Refill : Less Than 3 Seconds General Appearance: no apparent distress Respiratory: no respiratory distress Skin: other (SACRAL WOUND -- 3.5 x 3.1 x 2.3 cm, base 50% granulation, 50% slough. mod. s.s. drainage. ) Results Laboratory Tests 05/09/18 04:10: White Blood Count 5.8, Red Blood Count 3.47L, Hemoglobin 9.9L, Hematocrit 31L, Mean Corpuscular Volume 90, Mean Corpuscular Hemoglobin 29, Mean Corpuscular Hemoglobin Concent 32, Red Cell Distribution Width 14.8H, Platelet Count 114L, Mean Platelet Volume 12.7H, Neutrophils (%) (Auto) 62, Lymphocytes (%) (Auto) 26 , Monocytes (%) (Auto) 10, Eosinophils (%) (Auto) 2, Basophils (%) (Auto) 0, Neutrophils # (Auto) 3.6, Lymphocytes # (Auto) 1.5, Monocytes # (Auto) 0.6, Eosinophils # (Auto) 0.1, Basophils # (Auto) 0.0, Sodium Level 143, Potassium Level 3.1L, Chloride Level 106, Carbon Dioxide Level 27, Anion Gap 10, Blood Urea Nitrogen 11, Creatinine 0.62, Estimat Glomerular Filtration Rate > 60, BUN/ Creatinine Ratio 18, Glucose Level 101, Calcium Level 8.0L, Corrected Calcium 8.9, Phosphorus Level 1.0*L, Magnesium Level 1.6L, Total Bilirubin 0.8, Aspartate Amino Transf (AST/SGOT) 24, Alanine Aminotransferase (ALT/SGPT) 13, Alkaline Phosphatase 53, Total Protein 5.2L, Albumin 2.9L Microbiology 05/06/18 Blood Culture - Preliminary, Resulted No growth 05/06/18 MRSA Screen - Final, Complete MRSA not isolated Assessment/Plan/Dx 1. Sacral pressure ulcer, Stage 4, stable. 2. Debility. 3. Recent episode of small bowel obstruction. Plan: Silver alginate dressings, low air loss mattress, frequent repositioning ABELINO MENDEZ MD May 09, 2018 12:46
[2018-05-09] MEDS ORDERED: PATIENT MAY USE OWN MEDS, ALL MC SCH (14:30)
--- NOTE | 2018-05-09 15:25 | NUR ---
CM/SS spoke with Alyss[facility] ([facility]) they have a CARE assessment that is good as the patient was there last Addendum: 05/09/18 at 1554 by NGOC HUGHES [facility] would like to plan for transport around 11am on 05/10.
--- NOTE | 2018-05-09 17:07 | Occupational Therapy Eval ---
OT Evaluation-General/PLF Medical Diagnosis Admission Date May 06, 2018 at 13:11 Medical Diagnosis: Bowel Obstruction/ventral hernia Onset Date: May 06, 2018 Therapy Diagnosis Therapy Diagnosis: Weakness Height/Weight Height (Feet): 5 Height (Inches): 0.00 Weight (Pounds): 124 Weight (Ounces): 8.0 Precautions Precautions/Isolations: Fall Prevention, Standard Precautions Safety Interventions: Bed Exit Alarm, Reorient-PRN Weight Bear Status Weight Bearing Restriction: Weight Bearing/Tolerated Referral Physician: Dr. Tracey Referral Reason: Activity Tolerance, Self Care, Evaluation/Treatment, Strengthening/ROM Medical History Additional Medical History Pt. had hip fx and sustained sacral decubitus ulcer in Dec. Current History Became ill at home and unable to keep anything down. Reviewed History: Yes Social History Home: Apartment Current Living Status: Alone Entry Into Home: Level Entry ADL-Prior Level of Function Therapy Code Descriptions/Definitions Functional [place] Measure: 0=Not Assessed/NA 4=Minimal Assistance 1=Total Assistance 5=Supervision or Setup 2=Maximal Assistance 6=Modified [place] 3=Moderate Assistance 7=Complete [place] Therapy Quality Codes: 6 Independent with activity with or without an assistive device 5 Patient requires set up or clean up by helper. Patient completes activity by themselves 4 Supervision or touching assist (CGA). [place] provide cues , steadying assist 3 The helper provides less than half the effort to complete the activity 2 The helper provides more than half the effort to complete the activity 1 Dependent. The helper does all the effort to complete an activity 7 Patient refused to complete or attempt activity 9 The patient did not perform the activity before the current illness or injury 88 Not attempted due to Medical conditions or safety concerns Functional Abilities and Goals: Independent: Patient completed the activities by him/herself, with or without an assistive device, with no assistance from a helper. Needed Some Help: Patient needed partial assistance from another person to complete activities. Dependent: A helper completed the activities for the patient. Unknown: Not Applicable: ADL PLOF Comments Daughter in room. Both pt. and daughter state that daughter gives pt. a shower and assists her with dressing. Self Care: Needed Some Help Functional Cognition: Needed Some Help DME/Equipment: Bath Chair, Shower DME/Equipment Comments walker OT Current Status Subjective Pt. states that she just got back to bed. Daughter confirms that she had just ambulated to toilet with nursing. Only needed minimal assistance. Appearance pt. in bed. Declines sitting on side of bed. Daughter states that pt. has not had a BM yet, but thinks that pt. will likely discharge when she does. Mental Status/Objective Patient Orientation: Person, Place ADL-Treatment Therapy Code Descriptions/Definitions Functional [place] Measure: 0=Not Assessed/NA 4=Minimal Assistance 1=Total Assistance 5=Supervision or Setup 2=Maximal Assistance 6=Modified [place] 3=Moderate Assistance 7=Complete [place] Therapy Quality Codes: 6 Independent with activity with or without an assistive device 5 Patient requires set up or clean up by helper. Patient completes activity by themselves 4 Supervision or touching assist (CGA). [place] provide cues , steadying assist 3 The helper provides less than half the effort to complete the activity 2 The helper provides more than half the effort to complete the activity 1 Dependent. The helper does all the effort to complete an activity 7 Patient refused to complete or attempt activity 9 The patient did not perform the activity before the current illness or injury 88 Not attempted due to Medical conditions or safety concerns Other Treatments Daughter assists with showering and dressing at home. States that her mother will go to [facility] for continued care upon discharge. Pt. declines OOB activity and daughter agrees to let her rest. Education OT Patient Education: Correct positioning, Reviewed precautions, Rehab process Teaching Recipient: Patient Teaching Methods: Discussion OT Short Term Goals Short Term Goals Transfers (B,C,W/C) (FIM): 6 1=Demonstrate adherence to instructed precautions during ADL tasks. 2=Patient will verbalize/demonstrate understanding of assistive devices/ modifications for ADL. 3=Patient will improve strength/tolerance for activity to enable patient to perform ADL's. OT [employer] Goals [employer] Goals Time Frame: May 16, 2018 Eating (FIM): 5 Grooming(FIM): 5 Transfers (B,C,W/C) (FIM): 5 Additional Goals: 1-Demonstrate ADL Tasks, 2-Verbalize Understanding, 3- ImproveStrength/Patrick 1=Demonstrate adherence to instructed precautions during ADL tasks. 2=Patient will verbalize/demonstrate understanding of assistive devices/ modifications for ADL. 3=Patient will improve strength/tolerance for activity to enable patient to perform ADL's. OT Education/Plan Problem List/Assessment Assessment: Decreased Activ Tolerance, Impaired I ADL's, Impaired Self-Care Skills Discharge Recommendations Plan/Recommendations: Continue POC Therapy D/C Recommendations: 24 hr Supervision, Residential (TCU/NH) Treatment Plan/Plan of Care Treatment,Training & Education: Yes Patient would benefit from OT for education, treatment and training to promote independence in ADL's, mobility, safety and/or upper extremity function for ADL' s. Plan of Care: ADL Retraining, Functional Mobility, UE Funct Exercise/Act Treatment Duration: May 16, 2018 Frequency: 5 times per week Estimated Hrs Per Day: .25 hour per day Agreement: Yes Rehab Potential: Fair Time/GCodes Start Time: 15:00 Stop Time: 15:10 Total Time Billed (hr/min): 10 Billed Treatment Time 1, MILA PALMER OT May 09, 2018 17:07
--- NOTE | 2018-05-09 18:19 | Progress Note (SOAP) ---
Subjective Date Seen by a Provider: May 09, 2018 Time Seen by a Provider: 18:18 Subjective/Events-last exam continues to improve. Hypokalemia and hypophosphatemia. Passing flatus Review of Systems General: No Chills, No Night Sweats, No Fatigue, No Malaise HEENT: No Head Aches, No Visual Changes, No Eye Pain, No Ear Pain, No Dysphasia , No Sinus Congestion, No Post Nasal Drip, No Sore Throat, No Other Pulmonary: No Dyspnea, No Cough, No Pleuritic Chest Pain Cardiovascular: No: Chest Pain, Palpitations, Orthopnea, Paroxysmal Noc. Dyspnea, Edema, Lt Headedness Gastrointestinal: No: Nausea, Vomiting, Abdominal Pain, Diarrhea, Constipation , Melena, Hematochezia Genitourinary: No Dysuria, No Frequency, No Incontinence, No Hematuria, No Retention Musculoskeletal: No: other, neck pain, shoulder pain, arm pain, back pain, hand pain, leg pain, foot pain Neurological: No: Weakness, Numbness, Incoordination, Change in speech, Confusion, Seizures, Other Objective Exam Vital Signs Date Time Temp Pulse Resp B/P (MAP) Pulse Ox O2 Delivery O2 Flow Rate FiO2 05/09/18 16:37 159/72 (101) 05/09/18 16:08 192/94 (126) 05/09/18 15:54 98.7 79 18 97 Room Air 05/09/18 12:27 99.1 70 18 163/88 (113) 96 Room Air 05/09/18 08:00 99.0 63 18 158/80 (106) 96 Room Air 05/09/18 08:00 Room Air 05/09/18 05:18 98.1 66 18 154/71 (98) 94 Nasal Cannula 1.00 05/09/18 04:00 98.1 66 18 154/71 (98) 94 Nasal Cannula 1.00 05/08/18 23:46 98.7 67 18 152/68 (96) 92 Nasal Cannula 1.00 05/08/18 20:20 Nasal Cannula 1.00 05/08/18 20:00 98.8 71 18 148/69 (95) 95 Nasal Cannula 1.00 I & O 05/09/18 07:00 Intake Total 2740 ml Output Total 825 ml Balance 1915 ml Capillary Refill : Less Than 3 Seconds General Appearance: No Apparent Distress Respiratory: Lungs Clear Cardiovascular: Regular Rate, Rhythm Gastrointestinal: soft, hernia Skin: Warm/Dry Results Lab Laboratory Tests 05/09/18 04:10: White Blood Count 5.8, Red Blood Count 3.47L, Hemoglobin 9.9L, Hematocrit 31L, Mean Corpuscular Volume 90, Mean Corpuscular Hemoglobin 29, Mean Corpuscular Hemoglobin Concent 32, Red Cell Distribution Width 14.8H, Platelet Count 114L, Mean Platelet Volume 12.7H, Neutrophils (%) (Auto) 62, Lymphocytes (%) (Auto) 26 , Monocytes (%) (Auto) 10, Eosinophils (%) (Auto) 2, Basophils (%) (Auto) 0, Neutrophils # (Auto) 3.6, Lymphocytes # (Auto) 1.5, Monocytes # (Auto) 0.6, Eosinophils # (Auto) 0.1, Basophils # (Auto) 0.0, Sodium Level 143, Potassium Level 3.1L, Chloride Level 106, Carbon Dioxide Level 27, Anion Gap 10, Blood Urea Nitrogen 11, Creatinine 0.62, Estimat Glomerular Filtration Rate > 60, BUN/ Creatinine Ratio 18, Glucose Level 101, Calcium Level 8.0L, Corrected Calcium 8.9, Phosphorus Level 1.0*L, Magnesium Level 1.6L, Total Bilirubin 0.8, Aspartate Amino Transf (AST/SGOT) 24, Alanine Aminotransferase (ALT/SGPT) 13, Alkaline Phosphatase 53, Total Protein 5.2L, Albumin 2.9L Microbiology 05/06/18 Blood Culture - Preliminary, Resulted No growth 05/06/18 MRSA Screen - Final, Complete MRSA not isolated Assessment/Plan Assessment/Plan Assess & Plan/Chief Complaint lady with acute gastric dilatation. Long-standing ventral hernia containing stomach small bowel and colon. Sacral decubitus ulcer. Leukocytosis and elevated lactic acid. Reasonable to administer IV antibiotics. Nasogastric tube has been placed to decompress stomach. Fluid replacement as needed. Monitor closely. lady with acute gastric dilatation, currently resolved. Most likely NG tube will be removed tomorrow. Hypokalemia, being addressed by her primary physician. Sacral decubitus, continue wound care. resolved acute gastric dilatation. lady with a resolved acute gastric dilatation. Tolerating liquid diet. Electrolytes would be replaced accordingly. Final Diagnosis gastric dilatation, resolved. Large, long-standing ventral hernia Clinical Quality Measures DVT/VTE Risk/Contraindication: Risk Factor Score Per Nursin RFS Level Per Nursing on Admit: 3=High BRIEN RIOS MD May 09, 2018 18:19
[2018-05-09] MEDS: SIMvastatin 10 MG (ZOCOR) TAB PO SCH (18:28)
[2018-05-09] MEDS ORDERED: MAGNESIUM CITRATE 300 ML BTL PO NR (18:30)
[2018-05-09] MEDS ORDERED: ONDANSETRON 4 MG/2 ML (SDV) Z0FRAN IVP PRN (21:00)
[2018-05-09] MEDS ORDERED: cloNIDine 0.1 MG (CATAPRES) TAB PO PRN (21:00)
--- NOTE | 2018-05-09 21:00 | NUR ---
1999-PTS BP 185/89 MANUALLY. PT HAS ALSO HAS INTERMITTENT N/V. 2032-SPOKE WITH DR. KIM, INFORMED HER OF PTS CONDITION. TELEPHONE ORDERS RECEIVED FOR ZOFRAN 8MG IV Q6HRS PRN AND CLONIDINE 0.1MG PO Q4HRS PRN SBP>160.
[2018-05-10] VITALS (8 sets, daily range): BP systolic 84–146; BP diastolic 42–79
[2018-05-10 04:46] LABS: BASOPHILS % (AUTO) 0 % (0-10); EOSINOPHILS # (AUTO) 0.3 10^3/uL (0.0-0.3); EOSINOPHILS % (AUTO) 4 % (0-10); HEMATOCRIT 33 % (35-52); HEMOGLOBIN 10.5 G/DL (11.5-16.0); LYMPHOCYTES # (AUTO) 1.6 X 10^3 (1.0-4.0); LYMPHOCYTES % (AUTO) 25 % (12-44); MEAN CORPUSCULAR HEMOGLOBIN 28 PG (25-34); MEAN CORPUSCULAR HGB CONC 32 G/DL (32-36); MEAN CORPUSCULAR VOLUME 89 FL (80-99); MEAN PLATELET VOLUME 12.6 FL (7.4-10.4); MONOCYTES # (AUTO) 0.5 X 10^3 (0.0-1.0); MONOCYTES % (AUTO) 8 % (0-12); NEUTROPHILS % (AUTO) 62 % (42-75); PLATELET COUNT 125 10^3/uL (130-400); RED CELL DISTRIBUTION WIDTH 14.4 % (10.0-14.5); WHITE BLOOD COUNT 6.4 10^3/uL (4.3-11.0)
[2018-05-10 05:09] LABS: ALANINE AMINOTRANSFERASE 12 U/L (0-55); ALBUMIN 2.8 GM/DL (3.2-4.5); ALKALINE PHOSPHATASE 53 U/L (40-136); BILIRUBIN,TOTAL 0.6 MG/DL (0.1-1.0); BUN/CREATININE RATIO 11; CALCIUM 7.7 MG/DL (8.5-10.1); CARBON DIOXIDE 24 MMOL/L (21-32); CHLORIDE 105 MMOL/L (98-107); CREATININE SERUM 0.56 MG/DL (0.60-1.30); GFR ESTIMATED > 60; GLUCOSE 106 MG/DL (70-105); MAGNESIUM 1.6 MG/DL (1.8-2.4); PHOSPHORUS 1.7 MG/DL (2.3-4.7); POTASSIUM 2.6 MMOL/L (3.6-5.0); SODIUM 140 MMOL/L (135-145); TOTAL PROTEIN 5.2 GM/DL (6.4-8.2)
[2018-05-10] MEDS ORDERED: ENOX40DI8 SQ (08:49)
[2018-05-10] MEDS ORDERED: MAGN400T6 PO (08:49)
[2018-05-10] MEDS: LINEZOLID (ZYVOX) 600 MG TAB PO SCH (08:52)
[2018-05-10] MEDS: PANTOPRAZOLE 40 MG (PROTONIX) VIAL IV SCH (08:52)
--- NOTE | 2018-05-10 08:52 | Discharge Inst-Skilled Nursing ---
Discharge Inst-Skilled NF Patient Instructions Patient Problems: Generalized weakness Dementia Hypokalemia HTN Goal: Return to independent living Consult/Follow Up/Orders Follow Up Appt.: [facility] in 1 week Skilled NF Admit to: [facility] Certification (SNF) I certify that SNF services are required to be given on an inpatient basis because of the above named patient's need for long-term care on a continuing basis for the conditions(s) for which he/she was receiving inpatient hospital services prior to his/her transfer to the SNF. [facility] Facility Order: Nursing Services, Conveyor Maintenance Mechanic-Evaluate & Treat, Physical Therapy-Evaluate & Treat, Speech Language-Evaluate & Treat Discharge Diet: No Restrictions Daily Activity as Tolerated: Yes New & Resume Previous Orders Mariposa Sauceda May 10, 2018 08:51 Pneu Vac Indicated: Yes MARIPOSA SAUCEDA DO May 10, 2018 08:52
[2018-05-10] MEDS: cefTRIAXone 1 GM/NS 50 ML IVPB IV SCH ×2 (08:53)
--- NOTE | 2018-05-10 08:53 | Discharge Summary-Hospitalist ---
LILLIAN KIM DO 05/10/18 0853: Diagnosis/Chief Complaint Date of Admission May 06, 2018 at 13:11 Date of Discharge Discharge Date: May 10, 2018 Discharge Diagnosis (1) Ventral hernia with bowel obstruction Status: Resolved (2) Hypophosphatemia Status: Acute (3) Hypomagnesemia Status: Acute (4) Hypokalemia Status: Acute (5) Sepsis Status: Resolved (6) Leukocytosis Status: Resolved (7) Acute kidney failure Status: Resolved (8) Debility Status: Acute (9) Decubital ulcer Status: Chronic (10) DVT prophylaxis Status: Acute (11) Dementia Status: Chronic Discharge Summary Discharge Physical Exam Allergies: Coded Allergies: chocolate flavor (Verified Allergy, Mild, NAUSEA, 05/06/18) Vitals & I&Os Vital Signs Date Time Temp Pulse Resp B/P (MAP) Pulse Ox O2 Delivery O2 Flow Rate FiO2 05/10/18 11:10 05/10/18 08:05 Room Air 05/10/18 08:05 98.6 64 18 96 05/09/18 08:00 General Appearance: No Apparent Distress, WD/WN, Chronically ill Respiratory: Chest Non Tender, Lungs Clear, Normal Breath Sounds, No Accessory Muscle Use, No Respiratory Distress Cardiovascular: Regular Rate, Rhythm, No Edema, No Gallop, No JVD, No Murmur, Normal Peripheral Pulses Neurologic/Psychiatric: Alert, No Motor/Sensory Deficits, Normal Mood/Affect, Disoriented Hospital Course Was the Problem List Reviewed?: Yes Patient was admitted from the ER with small bowel obstruction from ventral hernia and acute renal failure with sepsis. Dementia precluded a fast recovery. Patient required long term placement at discharge since family could not manage her at home any longer. Appreciate general surgery consultation. Patient required potassium supplementation with magnesium supplementation along with phosphorus supplementation. Overall prognosis is very poor considering chronic disability and dementia and chronic ventral hernia which likely will give rise to recurrent small bowel obstructions. Soft diet was tolerated and will be continued at the long term. Labs (last 24 hrs) Laboratory Tests 05/10/18 04:10: White Blood Count 6.4, Red Blood Count 3.74L, Hemoglobin 10.5L, Hematocrit 33L, Mean Corpuscular Volume 89, Mean Corpuscular Hemoglobin 28, Mean Corpuscular Hemoglobin Concent 32, Red Cell Distribution Width 14.4, Platelet Count 125L, Mean Platelet Volume 12.6H, Neutrophils (%) (Auto) 62, Lymphocytes (%) (Auto) 25 , Monocytes (%) (Auto) 8, Eosinophils (%) (Auto) 4, Basophils (%) (Auto) 0, Neutrophils # (Auto) 4.0, Lymphocytes # (Auto) 1.6, Monocytes # (Auto) 0.5, Eosinophils # (Auto) 0.3, Basophils # (Auto) 0.0, Sodium Level 140, Potassium Level 2.6L, Chloride Level 105, Carbon Dioxide Level 24, Anion Gap 11, Blood Urea Nitrogen 6L, Creatinine 0.56L, Estimat Glomerular Filtration Rate > 60, BUN /Creatinine Ratio 11, Glucose Level 106H, Calcium Level 7.7L, Corrected Calcium 8.7, Phosphorus Level 1.7L, Magnesium Level 1.6L, Total Bilirubin 0.6, Aspartate Amino Transf (AST/SGOT) 22, Alanine Aminotransferase (ALT/SGPT) 12, Alkaline Phosphatase 53, Total Protein 5.2L, Albumin 2.8L Microbiology 05/06/18 Blood Culture - Preliminary, Resulted No growth 05/06/18 MRSA Screen - Final, Complete MRSA not isolated Patient resulted labs reviewed. Pending Labs Discussion & Recommendations Discharge Planning: <30 minutes discharge planning Discharge Home Medications: Active Scripts Active Magnesium Oxide 400 Mg Tablet 400 Mg PO BID 30 Days Enoxaparin Sodium 40 Mg/0.4 Ml Syringe 40 Mg SQ Q24H 14 Days Reported Glucosamine (Glucosamine Sulfate 2Kcl) 1,000 Mg Tablet 1,000 Mg PO DAILY PRN Fish Oil 1,000 mg Capsule ([place] 3 Polyunsat Fatty Acids) 1,000 Mg Cap 1,000 Mg PO DAILY Ondansetron Odt (Ondansetron) 4 Mg Tab.rapdis 4 Mg PO TID PRN Verapamil ER (Verapamil HCl) 120 Mg Tablet.er 120 Mg PO 0800 Potassium Chloride 10 Meq Tab.er.prt 10 Meq PO 0800,1430 Lovastatin 10 Mg Tablet 10 Mg PO 1730 Captopril-Hctz 50-25 mg Tablet (Captopril/Hydrochlorothiazide) 1 Each Tablet 1 Tab PO 0700 Linezolid 600 Mg Tablet 600 Mg PO BID 10 Days 10 DAY SUPPLY FILLED 05-02-18 Instructions to patient/family Please see electronic discharge instructions given to patient. Clinical Quality Measures DVT/VTE Risk/Contraindication: Risk Factor Score Per Nursin RFS Level Per Nursing on Admit: 3=High KENDAL MORGAN MEDICAL STUDENT 05/10/18 1146: Diagnosis/Chief Complaint Discharge Date: May 10, 2018 Admission Diagnosis Ventral hernia with gastric obstruction Sepsis Discharge Diagnosis Ventral hernia with gastric obstruction, resolved Sepsis, resolved ISELA, resolved Hypophosphatemia, hypomagnesemia, hypokalemia Debility (1) Ventral hernia with bowel obstruction Status: Resolved (2) Acute kidney failure Status: Resolved (3) Decubital ulcer Status: Chronic (4) Sepsis Status: Resolved (5) Debility Status: Acute (6) Hypomagnesemia Status: Acute (7) Hypophosphatemia Status: Acute (8) Hypokalemia Status: Acute Discharge Summary Procedures/Consulations General surgery was consulted for assistance of management of gastric obstruction Wound care was consulted for assistance with sacral decubital ulcer Discharge Physical Exam Allergies: Coded Allergies: chocolate flavor (Verified Allergy, Mild, NAUSEA, 05/06/18) General Appearance: No Apparent Distress, WD/WN HEENT: Moist Mucous Membranes Respiratory: Chest Non Tender, Lungs Clear, Normal Breath Sounds, No Accessory Muscle Use, No Respiratory Distress Cardiovascular: Regular Rate, Rhythm, No Edema, No Gallop, No JVD, No Murmur, Normal Peripheral Pulses Gastrointestinal: Normal Bowel Sounds, No Organomegaly, No Pulsatile Mass, Non Tender, Soft; No Guarding; Hernia (good bowel sounds within hernia, mild TTP) Extremity: Normal Capillary Refill, No Calf Tenderness, No Pedal Edema Skin: Warm/Dry, Cool Neurologic/Psychiatric: Alert, Oriented x3, No Motor/Sensory Deficits, Normal Mood/Affect Hospital Course Was the Problem List Reviewed?: Yes This is a 77 yo white female who presented to ER on 05/06/18 with intractable n/ v and abdominal pain for one week. Pt has a hx of large ventral hernia. CT/AP revealed the hernia contained a majority of the stomach and L colon, likely causing an obstruction. Pt was also septic and had acute kidney failure. Pt was admitted for IVF, IV antibiotics, and surgery consult for obstruction. She was placed on NPO and underwent NG suction. The pt slowly improved over 4 days and today has tolerated a liquid diet and had 2 BMs. Some mild electrolyte abnormalities persist, but this can be appropriately managed at the SNF to which the pt will be discharged. Discharge Condition at discharge Stable Clinical Quality Measures DVT/VTE Risk/Contraindication: RFS Level Per Nursing on Admit: 3=High Problem Qualifiers (1) Sepsis: Sepsis type: sepsis due to unspecified organism Qualified Codes: A41.9 - Sepsis, unspecified organism (2) Leukocytosis: Leukocytosis type: leukemoid reaction Qualified Codes: D72.823 - Leukemoid reaction (3) Acute kidney failure: Acute renal failure type: unspecified Qualified Codes: N17.9 - Acute kidney failure, unspecified (4) Decubital ulcer: Pressure injury location: sacral region Pressure injury stage: unspecified pressure injury stage Qualified Codes: L89.159 - Pressure ulcer of sacral region, unspecified stage (5) Dementia: Dementia type: Alzheimer's disease Alzheimer's disease onset: unspecified onset Dementia behavioral disturbance: without behavioral disturbance Qualified Codes: G30.9 - Alzheimer's disease, unspecified; F02.80 - Dementia in other diseases classified elsewhere without behavioral disturbance LILLIAN KIM DO May 10, 2018 08:53 KENDAL MORGAN MEDICAL STUDENT May 10, 2018 11:46
[2018-05-10] MEDS ORDERED: KCL 10 MEQ TAB (MICRO K) PO NR (09:00)
--- NOTE | 2018-05-10 09:39 | NUR ---
CM/SS [facility] will transport this day at 1100. Discharge information sent to [facility].
[2018-05-10] MEDS: ENOXAPARIN 40 MG/0.4 ML (LOVENOX) SYR SQ SCH (10:09)
[2018-05-11] MEDS ORDERED: KCL 10 MEQ TAB (MICRO K) PO SCH (07:00)
[2018-05-11] MEDS ORDERED: PANTOPRAZOLE 40 MG (PROTONIX) TAB PO SCH (09:00)
== END 2018-05-10 11:10 | DRG 871 ==
LOC: EDUNIT# 09:47 → ER 09:50 → ICU 13:11 → 4TH 05-08 14:00
PROVIDERS: ADMIT Family Medicine; ATTEND Family Medicine
DX: A41.9 Sepsis, unspecified organism (principal); L89.154 Pressure ulcer of sacral region, stage 4; B95.62 Methicillin resistant Staphylococcus aureus infection as the cause of diseases classified elsewhere; K43.6 Other and unspecified ventral hernia with obstruction, without gangrene; K31.0 Acute dilatation of stomach; N17.9 Acute kidney failure, unspecified; E86.0 Dehydration; E87.6 Hypokalemia; N18.9 Chronic kidney disease, unspecified; E11.9 Type 2 diabetes mellitus without complications; Z79.4 Long term (current) use of insulin; K59.09 Other constipation; M54.9 Dorsalgia, unspecified; R53.81 Other malaise; F32.9 Major depressive disorder, single episode, unspecified; E83.39 Other disorders of phosphorus metabolism; E83.42 Hypomagnesemia; G30.9 Alzheimer's disease, unspecified; F02.80 Dementia in other diseases classified elsewhere, unspecified severity, without behavioral disturbance, psychotic disturbance, mood disturbance, and anxiety
CPT/HCPCS: 36415; 71045; 74176; 80048; 80053; 81000; 82962; 83605; 83735; 84100; 85007; 85025; 85027; 87040; 87081; 96361; 96365; 96366; 96375

== ENCOUNTER → 2018-05-16 | Outpatient (CLI) | payer MEDICARE ==
[~2018-05-16] MED LIST: CAPT1TAB8 PO; ENOX40DI8 SQ; GLUC100016 PO; LINE600T33 PO; LOVA10TA PO; MAGN400T6 PO; OMG1KC PO; ONDA4TAB11 PO; POTA10TA36 PO; SODI473S7 TOP; VERA120T84 PO
== END ==
LOC: WOUNDCARE 13:12
PROVIDERS: ATTEND Surgery
DX: L89.154 Pressure ulcer of sacral region, stage 4 (principal); R54 Age-related physical debility; S72.002D Fracture of unspecified part of neck of left femur, subsequent encounter for closed fracture with routine healing
CPT/HCPCS: 11042

== ENCOUNTER → 2018-05-23 | Outpatient (CLI) | payer MEDICARE | LOC: WOUNDCARE 13:07 | PROVIDERS: ATTEND Surgery | DX: L89.154 Pressure ulcer of sacral region, stage 4 (principal); R54 Age-related physical debility; S72.002A Fracture of unspecified part of neck of left femur, initial encounter for closed fracture | CPT/HCPCS: 11042 ==

== ENCOUNTER → 2018-05-30 | Outpatient (CLI) | payer MEDICARE | LOC: WOUNDCARE 13:15 | PROVIDERS: ATTEND Surgery | DX: L89.154 Pressure ulcer of sacral region, stage 4 (principal); R54 Age-related physical debility; S72.002D Fracture of unspecified part of neck of left femur, subsequent encounter for closed fracture with routine healing | CPT/HCPCS: 11042; 87070; 87205 ==

== ENCOUNTER → 2018-06-06 | Outpatient (CLI) | payer MEDICARE | LOC: WOUNDCARE 13:07 | PROVIDERS: ATTEND Surgery | DX: L89.154 Pressure ulcer of sacral region, stage 4 (principal); R54 Age-related physical debility; E44.0 Moderate protein-calorie malnutrition; S72.002D Fracture of unspecified part of neck of left femur, subsequent encounter for closed fracture with routine healing | CPT/HCPCS: 11042 ==

== ENCOUNTER → 2018-06-13 | Outpatient (CLI) | payer MEDICARE ==
[~2018-06-13] MED LIST changes: +VERA120T10 PO; -VERA120T84 PO
== END ==
LOC: WOUNDCARE 13:21
PROVIDERS: ATTEND Surgery
DX: L89.154 Pressure ulcer of sacral region, stage 4 (principal); R54 Age-related physical debility; S72.002D Fracture of unspecified part of neck of left femur, subsequent encounter for closed fracture with routine healing
CPT/HCPCS: 11042

== ENCOUNTER → 2018-06-20 | Outpatient (CLI) | payer MEDICARE | LOC: WOUNDCARE 13:20 | PROVIDERS: ATTEND Surgery | DX: L89.154 Pressure ulcer of sacral region, stage 4 (principal); R54 Age-related physical debility; S72.002D Fracture of unspecified part of neck of left femur, subsequent encounter for closed fracture with routine healing | CPT/HCPCS: 11042 ==

== ENCOUNTER → 2018-06-27 | Outpatient (CLI) | payer MEDICARE | LOC: WOUNDCARE 13:21 | PROVIDERS: ATTEND Surgery | DX: L89.154 Pressure ulcer of sacral region, stage 4 (principal); R54 Age-related physical debility; E44.1 Mild protein-calorie malnutrition; S72.002D Fracture of unspecified part of neck of left femur, subsequent encounter for closed fracture with routine healing | CPT/HCPCS: 11042 ==

== ENCOUNTER → 2018-07-04 | Outpatient (CLI) | payer MEDICARE | LOC: WOUNDCARE 13:16 | PROVIDERS: ATTEND Surgery | DX: L89.154 Pressure ulcer of sacral region, stage 4 (principal); R54 Age-related physical debility; E44.1 Mild protein-calorie malnutrition; S72.002D Fracture of unspecified part of neck of left femur, subsequent encounter for closed fracture with routine healing | CPT/HCPCS: 11042 ==

== ENCOUNTER → 2018-07-11 | Outpatient (CLI) | payer MEDICARE | LOC: WOUNDCARE 13:18 | PROVIDERS: ATTEND Surgery | DX: L89.154 Pressure ulcer of sacral region, stage 4 (principal); R54 Age-related physical debility; E44.1 Mild protein-calorie malnutrition; S72.002D Fracture of unspecified part of neck of left femur, subsequent encounter for closed fracture with routine healing | CPT/HCPCS: 99212 ==

== ENCOUNTER → 2018-07-18 | Outpatient (CLI) | payer MEDICARE | LOC: WOUNDCARE 13:24 | PROVIDERS: ATTEND Surgery | DX: L92.8 Other granulomatous disorders of the skin and subcutaneous tissue (principal); L89.154 Pressure ulcer of sacral region, stage 4; R54 Age-related physical debility; E44.1 Mild protein-calorie malnutrition; S72.002D Fracture of unspecified part of neck of left femur, subsequent encounter for closed fracture with routine healing | CPT/HCPCS: 17250; 99212 ==

== ENCOUNTER → 2018-07-25 | Outpatient (CLI) | payer MEDICARE | LOC: WOUNDCARE 13:21 | PROVIDERS: ATTEND Surgery | DX: L89.154 Pressure ulcer of sacral region, stage 4 (principal); R54 Age-related physical debility; E44.1 Mild protein-calorie malnutrition; S72.002D Fracture of unspecified part of neck of left femur, subsequent encounter for closed fracture with routine healing | CPT/HCPCS: 99212 ==